=== PATIENT | female | born 1945 | race Two or more races ===

== ENCOUNTER 2019-08-06 14:46 | Inpatient (IN) | payer MEDICARE, MEDICAID ==
[~2019-08-06] VITALS: Ht 162.6 cm; Wt 79.5 kg
[~2019-08-06 14:46] MED LIST: AMLO5TAB15 PO; ASPI-394 PO; B-CO1CAP6 PO; CLOP75TA41 PO; GABA100C9 PO; INSUINJ49 SC; LOSA-69 PO; METO25TA5 PO; Novolog SC; PANT1INJ3 PO; PRAV20TA3 PO; RANI-226 PO; SEVE800T8 PO
[2019-08-06 15:24] LABS: Basophils # (auto) 0.1 10 ^3/uL (0-0.2); Basophils % (auto) 0.9 % (0.0-2.0); Eosinophils # (auto) 0.1 10 ^3/uL (0-0.8); Lymphocytes # (auto) 0.7 10 ^3/uL (0.4-5.4); Monocytes # (auto) 0.4 10 ^3/uL (0-1.3); Nucleated Red Blood Cells % 0.1 %; Red Cell Distribution Width 18.9 % (11.8-14.3)
[2019-08-06 15:25] LABS: Eosinophils % (auto) 1.6 % (0.0-7.0); Hematocrit 27.1 % (36.0-46.0); Hemoglobin 8.8 g/dL (12.2-16.2); Lymphocytes % (auto) 10.8 % (10.0-50.0); Mean Corpuscular Hgb Conc. 32.3 g/dL (32.0-36.0); Mean Corpuscular Volume 102.2 fL (80.0-100.0); Neutrophils # (auto) 5.1 10 ^3/uL (1.6-8.6); Neutrophils % (auto) 79.7 % (37.0-80.0); Platelet Count (auto) 181 10^3/uL (140-450); Red Blood Cells 2.65 10^6/uL (4.0-5.20); White Blood Cell 6.4 10^3/uL (4.4-10.8)
[2019-08-06 15:43] LABS: Albumin 3.1 g/dL (3.4-5.0); BUN/Creatinine Ratio 8.7; Calcium 7.7 mg/dL (8.5-10.1); Potassium 5.4 mmol/L (3.5-5.1)
[2019-08-06 15:47] LABS: Bilirubin, Total 0.7 mg/dL (0.2-1.0); Total Protein 6.8 g/dL (6.4-8.2)
[2019-08-06] MEDS ORDERED: DEXTROSE (50%) 50ML SYRG IV PRN (23:45)
[2019-08-06] MEDS ORDERED: NITROGLYCERIN 0.4 MG SL TAB SL PRN (23:45)
[2019-08-06] MEDS ORDERED: MORPHINE SULF INJ 2 MG/ML SYRINGE 1ML IV PRN ×2 (23:45)
[2019-08-07] MEDS: ACCU-CHEK COMFORT CURVE STRIP VI SCH ×5 (00:44→23:33)
[2019-08-07 02:07] LABS: INR 1.02 (0.9-1.15); Partial Thromboplastin Time 25.6 sec (23.64-32.05)
--- NOTE | 2019-08-07 04:10 | NUR ---
Telemetry admit from ER SARAHI OHARA admitted to Telemetry unit. Patient oriented to Kelsy Barker, primary RN, unit, room, bed, and unit policies regarding patient care and visiting hours. Patient now on continuous telemetry monitoring, tele box #[id number] and telemetry reading on arrival to unit is Sinus Bradycardia @58bpm. Patient placed on bedside oxygen, weighed by bed scale and encouraged to call if they need something. All questions and concerns addressed, patient verbalized understanding. Note: Patient Arabic speaking.
[2019-08-07 05:00] VITALS: BP 140/39
[2019-08-07] MEDS: InsuLIN REG 1unit/0.01ml Soln (100units/ml) SC SCH ×5 (06:37→23:32)
--- NOTE | 2019-08-07 07:15 | NUR ---
WOUND PHOTOS TAKEN AND FORMS PLACED IN WOUND CARE BOX.
--- NOTE | 2019-08-07 07:50 | NUR ---
OPENING SHIFT NOTE ASSUMED CARE OF PATIENT FROM CREDIT COLLECTIONS ANALYST RN TERESA. PATIENT IS AWAKE, ALERT, AND ORIENTED X4. PATIENT HAS NO S/S OF DISTRESS/SOB OR PAIN. INSTRUCTED PATIENT ON POC, PATIENT VERBALIZED UNDERSTANDING. BED IS IN LOWEST POSITION WITH SIDE RAILS RAISED X2, BED WHEELS LOCKED, AND CALL LIGHT IS WITHIN REACH. WILL CONTINUE TO MONITOR.
--- NOTE | 2019-08-07 08:00 | NUR ---
PATIENT HAS A RIGHT GROIN AND LEFT UPPER CHEST DIALYSIS CATHETER. BOTH ARE ASYMPTOMATIC.
[2019-08-07 08:30] VITALS: BP 129/49
[2019-08-07 10:53] LABS: Calcium 8.7 mg/dL (8.5-10.1); Potassium 4.9 mmol/L (3.5-5.1)
--- NOTE | 2019-08-07 11:00 | NUR ---
WOUND CARE NOTE: WOUND CONSULT WAS ORDERED FOR PATIENT. UPON DISCUSSION WITH BEDSIDE NURSE, PATIENT HAS NO OPEN/DRAINING WOUNDS. PATIENT HAS KARLA SCORE OF 16, AND CAN SELF TURN/REPOSITION SELF. WOUND CONSULT ORDER IS TO BE CANCELLED. NO WOUND CARE MONITORING NEEDED AT THIS TIME.
--- NOTE | 2019-08-07 11:50 | NUR ---
INFORMED MD LITTLE OF CRITICAL BUN. IS AWARE. NO NEW ORDERS GIVEN.
--- NOTE | 2019-08-07 12:00 | NUR ---
PER OK TO CONTINUE ALL HOME MEDICATIONS
[2019-08-07 12:30] VITALS: BP 133/54
[2019-08-07] MEDS ORDERED: AZITHROMYCIN 250 MG TAB PO ONE (13:45)
[2019-08-07] MEDS ORDERED: ENOXAPARIN SOD 100 MG/1 ML SYRINGE SC ONE (13:45)
[2019-08-07] MEDS ORDERED: cefTRIAXone 1GM/50ML D5W 50 ML IV ONE (14:00)
[2019-08-07 17:00] VITALS: BP 132/52
[2019-08-07] MEDS: SEVELAMER 800 MG TAB PO SCH (17:52)
[2019-08-07] MEDS: amLODIPine BESYLATE 5 MG TAB PO SCH (17:52)
--- NOTE | 2019-08-07 18:46 | NUR ---
CLOSING SHIFT NOTE PATIENT HAS NO S/S OF DISTRESS/SOB OR PAIN AT THIS TIME. WILL ENDORSE CARE TO FOREST LOGISTICS MANAGER RN.
--- NOTE | 2019-08-07 19:30 | NUR ---
Opening Shift Note Assumed care of patient, awake and alert, martiniquais speaking.looked for an linker up. No S/S of distress/SOB or pain. Instructed on POC and to call for assist PRN, will continue to monitor for changes Q1hr and PRN.
[2019-08-07 22:00] VITALS: BP 124/61
[2019-08-07] MEDS ORDERED: RANITIDINE HCL PO SCH (22:00)
[2019-08-07] MEDS: METOPROLOL TARTRATE 25 MG TAB PO SCH (22:00)
[2019-08-07] MEDS ORDERED: PATIENTS OWN MEDICATION (Sevelamer Carbonate (Renvela) 2 TAB) PO SCH (22:00)
[2019-08-07] MEDS: PRAVASTATIN SODIUM 20 MG TAB PO SCH (22:05)
[2019-08-07] MEDS: LOSARTAN POTASSIUM 50 MG TAB PO SCH (22:06)
[2019-08-07] MEDS: GABAPENTIN 100 MG CAP PO SCH (22:07)
[2019-08-08 05:00] VITALS: BP 125/44
--- NOTE | 2019-08-08 05:17 | NUR ---
Opening Shift Note Assumed care of patient, awake and alert, equatorial guinean speaking. No S/S of distress/SOB or pain. Instructed on POC and to call for assist PRN, will continue to monitor for changes Q1hr and PRN.
[2019-08-08] MEDS: InsuLIN REG 1unit/0.01ml Soln (100units/ml) SC SCH ×3 (06:00→17:22)
[2019-08-08] MEDS: ACCU-CHEK COMFORT CURVE STRIP VI SCH ×3 (06:33→17:21)
--- NOTE | 2019-08-08 07:00 | NUR ---
pt sleeping at this time. respirations even and unlabored. Endorsed to ANTONIO Matthews.
--- NOTE | 2019-08-08 07:18 | NUR ---
OPENING SHIFT NOTE ASSUMED CARE OF PATIENT FROM INSURANCE SPECIALIST RN TERESA. PATIENT IS AWAKE, ALERT, AND ORIENTED X4. PATIENT HAS NO S/S OF DISTRESS/SOB OR PAIN. INSTRUCTED PATIENT ON POC, PATIENT VERBALIZED UNDERSTANDING. BED IS IN LOWEST POSITION WITH SIDE RAILS RAISED X2, BED WHEELS LOCKED, AND CALL LIGHT IS WITHIN REACH. WILL CONTINUE TO MONITOR.
[2019-08-08] MEDS: cefTRIAXone 1GM/50ML D5W 50 ML IV SCH (07:52)
[2019-08-08] MEDS: SEVELAMER 800 MG TAB PO SCH ×3 (07:52→17:32)
[2019-08-08 08:00] VITALS: BP 116/49
[2019-08-08 08:10] VITALS: BP 116/49
[2019-08-08] MEDS: B-COMPLEX W/ C & FOLIC ACID(NEPHROVITE TAB) PO SCH (09:46)
[2019-08-08] MEDS: CLOPIDOGREL BISULFATE 75 MG TAB PO SCH (09:46)
[2019-08-08] MEDS: AZITHROMYCIN 250 MG TAB PO SCH (09:46)
[2019-08-08] MEDS: FAMOTIDINE 20 MG TAB PO SCH (09:46)
[2019-08-08] MEDS: PANTOPRAZOLE 40 MG/10 ML VIAL INJ IV SCH (09:47)
[2019-08-08] MEDS ORDERED: ENOXAPARIN SOD 100 MG/1 ML SYRINGE SC SCH (10:00)
[2019-08-08] MEDS ORDERED: [UNRECOGNIZED DRUG - OTHER] PO SCH (10:00)
[2019-08-08] MEDS ORDERED: FOLIC ACID PO SCH (10:00)
[2019-08-08] MEDS ORDERED: ASPirin-EC 81 mg tab PO SCH (10:00)
[2019-08-08] MEDS ORDERED: B COMPLEX PO SCH (10:00)
[2019-08-08 10:15] LABS: Basophils # (auto) 0.1 10 ^3/uL (0-0.2); Basophils % (auto) 0.9 % (0.0-2.0); Eosinophils # (auto) 0.2 10 ^3/uL (0-0.8); Eosinophils % (auto) 2.9 % (0.0-7.0); Hemoglobin 8.8 g/dL (12.2-16.2); Lymphocytes # (auto) 1.1 10 ^3/uL (0.4-5.4); Lymphocytes % (auto) 14.6 % (10.0-50.0); Mean Corpuscular Hemoglobin 32.4 pg (28.0-32.0); Mean Corpuscular Hgb Conc. 32.7 g/dL (32.0-36.0); Mean Corpuscular Volume 99.3 fL (80.0-100.0); Monocytes # (auto) 0.6 10 ^3/uL (0-1.3); Monocytes % (auto) 8.7 % (0.0-12.0); Neutrophils # (auto) 5.3 10 ^3/uL (1.6-8.6); Neutrophils % (auto) 72.9 % (37.0-80.0); Nucleated Red Blood Cells % 0.1 %; Platelet Count (auto) 158 10^3/uL (140-450); Red Blood Cells 2.72 10^6/uL (4.0-5.20); Red Cell Distribution Width 18.3 % (11.8-14.3); White Blood Cell 7.2 10^3/uL (4.4-10.8)
[2019-08-08 10:32] LABS: BUN/Creatinine Ratio 8.6; Calcium 8.6 mg/dL (8.5-10.1)
--- NOTE | 2019-08-08 11:00 | NUR ---
MD LITTLE AT BEDSIDE. UPDATED MD ON PATIENT'S STATUS INCLUDING CRITICAL BUN AND CREATININE, MD IS AWARE AND ORDERED ASPIRIN TO BE DISCONTINUED. WILL FOLLOW THROUGH WITH ORDERS.
--- NOTE | 2019-08-08 11:10 | NUR ---
INFORMED MD LITTLE PATIENT WAS CLEARED FOR DISCHARGE BY NEPHROLOGY AND THEY WANT PATIENT TO CONTINUE DIALYSIS OUTPATIENT ON THURSDAY. PER MD HE WILL ORDER COUMADIN FOR THE PATIENT.
[2019-08-08 13:15] VITALS: BP 118/38
[2019-08-08 14:19] LABS: INR 1.06 (0.9-1.15)
--- NOTE | 2019-08-08 14:48 | NUR ---
Nutrition Assessment Notes please see attached link for complete assessment Est Energy needs BW 72 [id number] kcals (25-30kcal/kgBW), Est Protein needs: 86-93 gms/day (1.2-1.3 gm/kgBW (HD). Will continue to monitor and reassess prn. Addendum: 08/08/19 at [address] Amended: Links added.
--- NOTE | 2019-08-08 16:00 | NUR ---
SPOKE WITH DR. ANTUNEZ. INFORMED MD OF PATIENT'S BUN AND CREATININE LEVELS, RIGHT GROIN AND LEFT UPPER CHEST DIALYSIS CATHETERS. PER MD THE CLOT IN THE ARM NEEDS TO BE THERE BECAUSE THEY LIGATED THE FISTULA. MD DOES NOT WANT PATIENT ON COUMADIN AND WANTS THE RIGHT GROIN DIALYSIS TAKEN OUT. WILL INFORM MD LITTLE.
--- NOTE | 2019-08-08 16:12 | NUR ---
SPOKE WITH DR. LITTLE AND INFORMED MD LITTLE THAT DR. ANTUNEZ DOES NOT WANT THE PATIENT TO BE ON ANTICOAGS AND CLEARED PATIENT FOR DISCHARGE. PER MD LITTLE VERIFY WHICH MEDICATIONS TO DISCONTINUE AND IF MD ANTUNEZ WANTS PATIENT DISCHARGED TO PUT ORDER UNDER DR. ANTUNEZ WELL SURGICAL CONSULT. IF NOT MD LITTLE WILL DISCHARGE THE PATIENT IN THE MORNING. CALLED MD ANTUNEZ AND VERIFIED MEDICATIONS TO DISCONTINUE. MD BELLE ORDERED COUMADIN AND PLAVIX TO BE DISCONTINUED AND ORDERED A SURGICAL CONSULT TO REMOVE RIGHT GROIN DIALYSIS CATHETER. PER DR. ANTUNEZ HE WILL PUT IN ORDERS FOR PATIENT TO BE DIALYSED TOMORROW, PATIENT CAN BE DISCHARGED AFTER DIALYSIS. Addendum: 08/08/19 at 1649 by Cassie Puri RN RN MD ANTUNEZ ORDERED LOVENOX AND COUMADIN TO BE DISCONTINUED. IS OKAY WITH PLAVIX TO BE GIVEN
[2019-08-08] MEDS ORDERED: WARFARIN SODIUM 2.5 MG TAB PO ONE (17:00)
[2019-08-08 17:10] VITALS: BP 127/54
[2019-08-08] MEDS: amLODIPine BESYLATE 5 MG TAB PO SCH (17:34)
--- NOTE | 2019-08-08 19:05 | NUR ---
CLOSING SHIFT NOTE ENDORSED CARE TO TAXONOMY TEACHER ANTONIO REYES. PATIENT HAS NO S/S OF DISTRESS/SOB OR PAIN AT THIS TIME.
--- NOTE | 2019-08-08 19:35 | NUR ---
Opening Shift Note Assumed care of patient, awake and alert. No S/S of distress/SOB or pain. Instructed on POC and to call for assist PRN, patient verbalized understanding. Safety precaution in place, bed alarm on, call light within reach, will continue to monitor for changes Q1hr and PRN.
[2019-08-08] MEDS: LOSARTAN POTASSIUM 50 MG TAB PO SCH (21:39)
[2019-08-08] MEDS: PRAVASTATIN SODIUM 20 MG TAB PO SCH (21:39)
[2019-08-08] MEDS: GABAPENTIN 100 MG CAP PO SCH (21:39)
[2019-08-08] MEDS: METOPROLOL TARTRATE 25 MG TAB PO SCH (21:39)
[2019-08-08 23:31] VITALS: BP 112/62
[2019-08-09] MEDS: ACCU-CHEK COMFORT CURVE STRIP VI SCH ×4 (00:08→17:53)
[2019-08-09] MEDS: HYDROcodone-ACET 5/325MG TAB PO PRN (04:33)
[2019-08-09 05:25] VITALS: BP 106/73
[2019-08-09] MEDS: InsuLIN REG 1unit/0.01ml Soln (100units/ml) SC SCH ×4 (06:00→17:52)
[2019-08-09 07:09] LABS: Basophils # (auto) 0 10 ^3/uL (0-0.2); Basophils % (auto) 0.6 % (0.0-2.0); Eosinophils # (auto) 0.2 10 ^3/uL (0-0.8); Eosinophils % (auto) 3.6 % (0.0-7.0); Hematocrit 26.6 % (36.0-46.0); Hemoglobin 8.8 g/dL (12.2-16.2); Lymphocytes % (auto) 16.1 % (10.0-50.0); Mean Corpuscular Hemoglobin 33.2 pg (28.0-32.0); Mean Corpuscular Hgb Conc. 33.3 g/dL (32.0-36.0); Mean Corpuscular Volume 99.9 fL (80.0-100.0); Monocytes # (auto) 0.5 10 ^3/uL (0-1.3); Monocytes % (auto) 8.9 % (0.0-12.0); Neutrophils # (auto) 4.3 10 ^3/uL (1.6-8.6); Neutrophils % (auto) 70.8 % (37.0-80.0); Nucleated Red Blood Cells % 0.1 %; Platelet Count (auto) 169 10^3/uL (140-450); Red Blood Cells 2.66 10^6/uL (4.0-5.20); Red Cell Distribution Width 17.6 % (11.8-14.3); White Blood Cell 6.1 10^3/uL (4.4-10.8)
[2019-08-09 07:30] LABS: INR 1.01 (0.9-1.15)
[2019-08-09 07:32] LABS: Potassium 5.2 mmol/L (3.5-5.1)
[2019-08-09 07:37] LABS: BUN/Creatinine Ratio 9.2; Calcium 8.5 mg/dL (8.5-10.1)
--- NOTE | 2019-08-09 08:00 | NUR ---
Received pt resting in bed, call light with in reach, pt reports pain on her lower back due to not been able to have a normal BM, pt had a small BM 08/08/19,
[2019-08-09] MEDS: SEVELAMER 800 MG TAB PO SCH ×3 (08:15→17:23)
[2019-08-09 09:00] VITALS: BP 97/49
[2019-08-09] MEDS: AZITHROMYCIN 250 MG TAB PO SCH ×2 (09:31→10:00)
[2019-08-09] MEDS: DOCUSATE SOD 100 MG CAP PO PRN (09:32)
[2019-08-09] MEDS: B-COMPLEX W/ C & FOLIC ACID(NEPHROVITE TAB) PO SCH ×2 (09:32→10:00)
[2019-08-09] MEDS: FAMOTIDINE 20 MG TAB PO SCH ×2 (09:32→10:00)
[2019-08-09] MEDS: CLOPIDOGREL BISULFATE 75 MG TAB PO SCH ×2 (09:32→10:00)
[2019-08-09] MEDS: cefTRIAXone 1GM/50ML D5W 50 ML IV SCH (09:33)
[2019-08-09] MEDS: PANTOPRAZOLE 40 MG/10 ML VIAL INJ IV SCH ×2 (09:33→11:04)
[2019-08-09] MEDS: ONDANSETRON HCL 4 MG/2 ML VIAL IV PRN ×3 (09:33→20:18)
[2019-08-09] MEDS ORDERED: ENOXAPARIN SOD 80 MG/0.8ML SYRINGE SC SCH (10:00)
[2019-08-09] MEDS ORDERED: LACTULOSE 20Gm/30ML SOLN PO ONE (10:00)
--- NOTE | 2019-08-09 10:20 | NUR ---
Dr. Lacy at bed side to see pt, doctor informed regarding the critical lab values of BUN 112 and creatinine 12.20, pt vomiting her morning po medications, pt requesting a laxative, pt's last normal BM 3 days ago, and pt's HR to be on 40s, as per doctor call Dr. Juárez and inform of pt's HR to be in the 40s.
--- NOTE | 2019-08-09 10:20 | NUR ---
As per Dr. Lacy the discharge will be until Dr. Fisher / hi surgeon removes the right femoral meenu cath.
--- NOTE | 2019-08-09 11:00 | NUR ---
VTE DISCHARGE PATIENT NOT BEING DISCHARGED ON LOVENOX OF COUMADIN. CONTRAINDICATION DOCUMENTED. Addendum: 08/09/19 at 1112 by Cira Lakhani RN Amended: Links added.
--- NOTE | 2019-08-09 11:50 | NUR ---
Called and left a message to Dr. Juárez / Nephtavares to inform that pt's BUN is 112, createnine is 12.20, and that pt's HR has been sustaining at 40s to 50s, HD nurse at unit and also paged Dr. Juárez with the same information and to obtain HD orders for today.
[2019-08-09] MEDS ORDERED: SODIUM CHL 0.9% 1000 ML BAG XX ONE ×2 (12:00→13:15)
--- NOTE | 2019-08-09 12:00 | NUR ---
Dr. Juárez / daija returned call to hemodialysis nurse and gave her orders for hemodialysis, for the HR Dr. Juárez ask to inform the hospitalist. Dr. Lacy was already informed.
[2019-08-09 12:53] VITALS: BP 129/59
[2019-08-09] MEDS ORDERED: ALBUMIN 25% 100 ML IV ONE ×2 (14:00)
--- NOTE | 2019-08-09 14:30 | NUR ---
Pt on hold per RN. Addendum: 08/09/19 at 1443 by Vladislav Scott RN ACUTE CARE Amended: Links added.
--- NOTE | 2019-08-09 14:44 | NUR ---
ASSESSMENT INTERNAL AUDIT MANAGER SPOKE WITH PT'S GRANDSON TESSA PER INITIAL ASSESSMENT. PT IS A 73 YR OLD [place] SPEAKING FEMALE ADMITTED FOR ESRD, ACUTE CHF. SHE HAS A HX OF DM, ON DIALYSIS MWF WITH [facility]. PT HAS A WHEELCHAIR AND FWW AT HOME. SHE WAS PREVIOUSLY WITH [employer], NOT CURRENTLY ON SERVICES. PT'S PCP IS DR. MIXON. PT RESIDES WITH FAMILY (DAUGHTER NATO [phone] AND GRANDSON TESSA). DAUGHTER IS EMERGENCY DECISION MAKER, NO AHCD. FAMILY DECLINED AHCD/POA INFO AT THIS TIME. PT TO DC HOME WITH FAMILY 08/08, POSSIBLY 08/09, SHE IS PENDING REMOVAL OF RICARDO CATH. NO OTHER SS NEEDS IDENTIFIED, SS TO REMAIN AVAILABLE NEEDED. Addendum: 08/09/19 at 1448 by DENIZ MULLINS SS Amended: Links added.
--- NOTE | 2019-08-09 15:20 | NUR ---
Hemodialysis HD done, report received by HD nurse, pt's last BP 85/48, HR 48, pt is vomiting at this time, will medicate pt for nausea,
--- NOTE | 2019-08-09 15:30 | NUR ---
Paged Dr. Bell to inform that pt is having low BP, low HR, BP 85/48, HR 48, pt has been vomiting, pt reporting upper abdominal pain and back pain, tele monitor unit reported pt's HR dropping to 28, pt reported to feel dizzy and nauseous. Awaiting call back.
[2019-08-09 16:31] VITALS: BP 120/47
--- NOTE | 2019-08-09 16:50 | NUR ---
Dr. Fisher/surgeon at bed side to see pt, doctor discussed the plan of care with pt, pt reported to doctor having vomiting, upper abdominal pain, and back pain, doctor ordered an abdominal ultrasound, medical clearance, NPO, obtain consent for rt groin HD cath removal. Will inform Dr. Lacy.
--- NOTE | 2019-08-09 17:00 | NUR ---
Called and spoke to Dr. Lacy regarding pt having vomiting, upper abdominal pain and back pain, pt's heart rate sustaining on the 40s and dropping down to 38 and 28, pt reporting dizziness, EKG done, EKG results sinus rhythm at 70, pt having low BP during HD 85/48, received an order from Dr. Juárez/nephro for a one time albumin given by HD nurse, pt's last BP 120/47, HR 48, that Dr. Fisher/surgeon seen, orders received for cardiology consult, and orders to hold d/c.
[2019-08-09] MEDS: amLODIPine BESYLATE 5 MG TAB PO SCH (17:51)
--- NOTE | 2019-08-09 19:35 | NUR ---
Opening Shift Note Patient rounded with day nurse. Assumed care of patient, awake, appears fatigued, oriented. Instructed on POC and to call for assist PRN, will continue to monitor for changes Q1hr and PRN.
--- NOTE | 2019-08-09 20:15 | NUR ---
Patient complains of nausea. Zofran IV given per prn for nausea. Will continue to closely monitor.
[2019-08-09] MEDS ORDERED: EPOETIN ALFA 10,000 UNIT/1 ML VIAL SC ONE ×2 (21:00)
[2019-08-09 22:00] VITALS: BP 136/44
[2019-08-09] MEDS: GABAPENTIN 100 MG CAP PO SCH (22:00)
[2019-08-09] MEDS: LOSARTAN POTASSIUM 50 MG TAB PO SCH (22:00)
[2019-08-09] MEDS: METOPROLOL TARTRATE 25 MG TAB PO SCH (22:00)
[2019-08-09] MEDS: PRAVASTATIN SODIUM 20 MG TAB PO SCH (22:00)
--- NOTE | 2019-08-10 | NUR ---
Patient fells tired. Denies nausea at this time, no complains of pain. Care continued.
[2019-08-10] MEDS: ACCU-CHEK COMFORT CURVE STRIP VI SCH ×4 (00:44→18:45)
[2019-08-10 05:00] VITALS: BP 112/70
[2019-08-10] MEDS: InsuLIN REG 1unit/0.01ml Soln (100units/ml) SC SCH ×4 (06:00→18:00)
[2019-08-10] MEDS: ACETAMINOPHEN 325 MG TAB PO PRN (06:50)
--- NOTE | 2019-08-10 06:50 | NUR ---
Patient's temperature checked, result is 101 degrees. Tylenol 650 mg PO given as ordered by MD. Cooling measured initiated. Care continued.
--- NOTE | 2019-08-10 07:45 | NUR ---
Opening Note Received report from shift leader RN. Patient resting in bed, no signs or symptoms of distress noted at this time. Patient is on 2L NC, respirations even and unlabored. Bed in low and locked position, call light within reach. Will continue to monitor Q1 hour and PRN.
--- NOTE | 2019-08-10 07:50 | NUR ---
Temperature rechecked, went down to 100.4 degrees. Cooling measures continued. Report given to munir ALVAREZ.
[2019-08-10] MEDS: SEVELAMER 800 MG TAB PO SCH ×3 (08:00→18:00)
[2019-08-10 08:52] VITALS: BP 148/92
[2019-08-10] MEDS: cefTRIAXone 1GM/50ML D5W 50 ML IV SCH (09:06)
[2019-08-10] MEDS: PANTOPRAZOLE 40 MG/10 ML VIAL INJ IV SCH (09:06)
[2019-08-10] MEDS: B-COMPLEX W/ C & FOLIC ACID(NEPHROVITE TAB) PO SCH (09:07)
[2019-08-10] MEDS: CLOPIDOGREL BISULFATE 75 MG TAB PO SCH (09:07)
[2019-08-10] MEDS: FAMOTIDINE 20 MG TAB PO SCH (09:11)
[2019-08-10] MEDS: AZITHROMYCIN 250 MG TAB PO SCH (09:12)
--- NOTE | 2019-08-10 11:15 | NUR ---
Dr. Jordyn Hicks at bedside Discussing plan of care with this RN. Will continue to monitor Q1 hour and PRN.
[2019-08-10 12:47] VITALS: BP 105/70
[2019-08-10] MEDS ORDERED: LIDOCAINE 1% HCL (LOCAL ANESTH.) INJ 20ML MDV ONE (13:10)
[2019-08-10] MEDS ORDERED: BUPIVACAINE 0.25% INJ 50ML VIAL ONE (13:10)
--- NOTE | 2019-08-10 13:10 | NUR ---
Patient taken down to OR
[2019-08-10] MEDS ORDERED: fentaNYL CITRATE 100 MCG/2 ML VL ONE (13:47)
[2019-08-10] MEDS ORDERED: ONDANSETRON HCL 4 MG/2 ML VIAL IV PRN (14:15)
[2019-08-10] MEDS ORDERED: hydrALAZINE HCL 20 MG/ML VL IV PRN (14:15)
[2019-08-10] MEDS ORDERED: ePHEDrine SULFATE 50 MG/ML AMP IV PRN (14:15)
[2019-08-10] MEDS ORDERED: fentaNYL CITRATE 100 MCG/2 ML VL IV PRN (14:15)
--- NOTE | 2019-08-10 14:52 | NUR ---
Patient back to room Patient is s/p dialysis catheter removal from right groin. Patient is resting with eyes closed, easy to wake by calling name. Vital signs within normal limits. Dressing to right groin is clean dry and intact. Bed alarm on for safety. Bed in low and locked position, call light within reach. Will continue to monitor Q1 hour and PRN.
[2019-08-10 15:47] LABS: Basophils # (auto) 0 10 ^3/uL (0-0.2); Basophils % (auto) 0.2 % (0.0-2.0); Eosinophils # (auto) 0 10 ^3/uL (0-0.8); Hematocrit 30.8 % (36.0-46.0); Lymphocytes # (auto) 0.3 10 ^3/uL (0.4-5.4); Lymphocytes % (auto) 1.7 % (10.0-50.0); Mean Corpuscular Hemoglobin 32.5 pg (28.0-32.0); Mean Corpuscular Hgb Conc. 32.3 g/dL (32.0-36.0); Mean Corpuscular Volume 100.7 fL (80.0-100.0); Monocytes # (auto) 1.3 10 ^3/uL (0-1.3); Neutrophils # (auto) 15.2 10 ^3/uL (1.6-8.6); Neutrophils % (auto) 90.1 % (37.0-80.0); Nucleated Red Blood Cells % 0.1 %; Platelet Count (auto) 191 10^3/uL (140-450); Red Blood Cells 3.06 10^6/uL (4.0-5.20); Red Cell Distribution Width 18.1 % (11.8-14.3); White Blood Cell 16.9 10^3/uL (4.4-10.8)
[2019-08-10 15:51] LABS: INR 1.13 (0.9-1.15)
[2019-08-10 15:54] LABS: BUN/Creatinine Ratio 7.7; Calcium 8.6 mg/dL (8.5-10.1)
[2019-08-10 17:20] VITALS: BP 136/52
[2019-08-10] MEDS: amLODIPine BESYLATE 5 MG TAB PO SCH (17:22)
--- NOTE | 2019-08-10 19:31 | NUR ---
Closing Note Report given to overnight caregiver RN. No signs or symptoms of distress noted at this time.
--- NOTE | 2019-08-10 19:50 | NUR ---
Opening Shift Note Assumed care of patient, awake, AAOx4. On 2L oxygen via nasal cannula. Patient on bedrest. No S/S of distress/SOB or pain. Bed in lowest locked position, side rails up x2, call light within reach. Instructed on POC and to call for assist PRN, will continue to monitor for changes Q1hr and PRN.
[2019-08-10 22:00] VITALS: BP 155/47
[2019-08-10] MEDS: GABAPENTIN 100 MG CAP PO SCH (22:00)
[2019-08-10] MEDS: PRAVASTATIN SODIUM 20 MG TAB PO SCH (22:00)
[2019-08-10] MEDS: METOPROLOL TARTRATE 25 MG TAB PO SCH (22:00)
[2019-08-10] MEDS: LOSARTAN POTASSIUM 50 MG TAB PO SCH (22:00)
[2019-08-11 05:00] VITALS: BP 121/45
[2019-08-11] MEDS: InsuLIN REG 1unit/0.01ml Soln (100units/ml) SC SCH ×4 (06:00→17:43)
[2019-08-11] MEDS: ACCU-CHEK COMFORT CURVE STRIP VI SCH ×4 (06:00→17:43)
--- NOTE | 2019-08-11 07:45 | NUR ---
Opening Note Received report from second shift supervisor RN. Patient resting in bed, no signs or symptoms of distress noted at this time. Patient is on 3L NC, respirations even and unlabored. Bed in low and locked position, call light within reach. Will continue to monitor Q1 hour and PRN.
[2019-08-11] MEDS: SEVELAMER 800 MG TAB PO SCH ×3 (08:00→17:44)
--- NOTE | 2019-08-11 08:45 | NUR ---
Unsuccessful IV attempt Patient has no IV access at this time, this RN and charge nurse attempted to obtain IV access. Will place midline consult. Will continue to monitor Q1 hour and PRN.
[2019-08-11] MEDS: cefTRIAXone 1GM/50ML D5W 50 ML IV SCH ×2 (09:00→16:09)
[2019-08-11 09:03] VITALS: BP 127/57
[2019-08-11] MEDS: CLOPIDOGREL BISULFATE 75 MG TAB PO SCH (10:00)
[2019-08-11] MEDS: B-COMPLEX W/ C & FOLIC ACID(NEPHROVITE TAB) PO SCH (10:00)
[2019-08-11] MEDS: FAMOTIDINE 20 MG TAB PO SCH (10:00)
[2019-08-11] MEDS: PANTOPRAZOLE 40 MG/10 ML VIAL INJ IV SCH (10:00)
[2019-08-11] MEDS: AZITHROMYCIN 250 MG TAB PO SCH (10:00)
--- NOTE | 2019-08-11 10:00 | NUR ---
Dr. Farooq at bedside Discussing plan of care with patient and this RN. New orders received. Will continue to monitor Q 1hour and PRN.
[2019-08-11 11:10] LABS: INR 1.21 (0.9-1.15)
[2019-08-11 12:32] VITALS: BP 117/50
--- NOTE | 2019-08-11 14:49 | NUR ---
Nutrition Followup Notes Wt: 80.8 kg Pt was sleeping with no family by bedside. per records pt with leukocytosis. pt is currently on renal std diet with inadequte PO of < 50% x 2 days as pt is refusing to eat per RN. Est Energy needs BW 72 [id number] kcals (25-30kcal/kgBW), Est Protein needs: 86-93 gms/day (1.2-1.3 gm/kgBW (HD). Will continue to monitor and reassess prn. LABS: BUN 68 H, CREAT 8.7 H, GLU 173 H, ALB 3.1 L GI: Pt had 1 BM 08/08 per RN doc BS: 15 mod risk, incision at site of sx per RN doc. Please refer to wound assessment report for full details. PES: Altered nutrition related lab values r/t current chronic medical condition aeb elev RFT TG hyperglycemia Comments Will continue to closely monitor pertinent labs, PO intake and skin status prn. Will followup in 3-5 days 1) refer to CDE oN DC. 2) consider nephrovite daily and Vit C bid. 3) continue current plan fo care
--- NOTE | 2019-08-11 15:50 | NUR ---
IV Insertion IV access obtained, via clean sterile technique by inserting 20 gauge catheter to the right forearm. IV secured properly. No trauma to site. Patient tolerated procedure well. Will continue to monitor Q1 hour and PRN.
[2019-08-11 16:48] VITALS: BP 115/62
[2019-08-11] MEDS: amLODIPine BESYLATE 5 MG TAB PO SCH (17:44)
--- NOTE | 2019-08-11 19:16 | NUR ---
Closing Note Report given to night clerk auditor RN. No signs or symptoms of distress noted at this time.
--- NOTE | 2019-08-11 19:40 | NUR ---
Opening Shift Note Assumed care of patient, awake and A/O x3, reoriented to time. No S/S of distress/SOB or pain. Bed in lowest locked position, both side rails lifted, safety precautions in place, call light within reach. Instructed on POC and to call for assist PRN, will continue to monitor for changes Q1hr and PRN. Signed: 08/12/19 at 0416 by JAVI VAUGHN <Co-Signature Required> Co-Signed: 08/12/19 at 0416 by Ivonne Brooks RN RN
[2019-08-11 22:00] VITALS: BP 116/47
[2019-08-11] MEDS: LOSARTAN POTASSIUM 50 MG TAB PO SCH (22:00)
[2019-08-11] MEDS: METOPROLOL TARTRATE 25 MG TAB PO SCH (22:00)
[2019-08-11] MEDS: PRAVASTATIN SODIUM 20 MG TAB PO SCH (22:34)
[2019-08-11] MEDS: HYDROcodone-ACET 5/325MG TAB PO PRN (22:34)
[2019-08-11] MEDS: GABAPENTIN 100 MG CAP PO SCH (22:34)
[2019-08-12 05:00] VITALS: BP 112/44
[2019-08-12] MEDS: InsuLIN REG 1unit/0.01ml Soln (100units/ml) SC SCH ×4 (06:00→18:14)
[2019-08-12] MEDS: ACCU-CHEK COMFORT CURVE STRIP VI SCH ×4 (06:19→18:14)
--- NOTE | 2019-08-12 07:30 | NUR ---
Opening Shift Note Assumed care of patient, patient appear very drowsy but responsive to name at this time. No S/S of distress/SOB or pain at this time. Instructed on POC and to call for assist PRN, will continue to monitor for changes Q1hr and PRN. Fall precautions in place per safety protocol.
[2019-08-12] MEDS: SEVELAMER 800 MG TAB PO SCH ×3 (08:21→18:13)
[2019-08-12 09:00] VITALS: BP 109/42
[2019-08-12] MEDS: cefTRIAXone 1GM/50ML D5W 50 ML IV SCH (09:38)
[2019-08-12] MEDS: FAMOTIDINE 20 MG TAB PO SCH (09:38)
[2019-08-12] MEDS: PANTOPRAZOLE 40 MG/10 ML VIAL INJ IV SCH (09:38)
[2019-08-12] MEDS: B-COMPLEX W/ C & FOLIC ACID(NEPHROVITE TAB) PO SCH (09:38)
[2019-08-12] MEDS: CLOPIDOGREL BISULFATE 75 MG TAB PO SCH (09:39)
[2019-08-12] MEDS: AZITHROMYCIN 250 MG TAB PO SCH (09:39)
[2019-08-12 10:38] LABS: INR 1.21 (0.9-1.15)
--- NOTE | 2019-08-12 12:00 | NUR ---
Sinus Tach Patient is ST with a HR in the high 140's and sustaining. Patient states, she feels dizzy. BP at this time is 94/49. Spoke to MD Lacy and updated him on patient status. Per MD Lacy, he will reconsult with MD Farooq for re-evaluation on patient. Per MD Lacy, patient experienced episode like this before and was placed on a beta brooklynn but then patient's HR became vega. At this time, Beta Brooklynn was stopped. Per MD Farooq notes, patient will be seen as outpatient. No new orders given at this time. Will cont to monitor patient.
--- NOTE | 2019-08-12 12:00 | NUR ---
MEDS HELD Renagel and Regular insulin 2 units held because patient refusing to eat. Patient educated on importance of medications and diet. Patient still refusing to eat. Will cont to monitor patient.
--- NOTE | 2019-08-12 12:40 | NUR ---
Hospitalist MD Lacy at bedside, aware of patient status. Per MD Lacy, he will speak to the patient's family for update on patient status and the possibility of placing patient on Hospice care. Per MD Lacy, he will place D/C order today, social service consult, and Physical therapy to ambulate the patient. Will carry out new orders and cont to monitor patient.
[2019-08-12 13:36] VITALS: BP 96/41
[2019-08-12] MEDS: amLODIPine BESYLATE 5 MG TAB PO SCH (18:00)
--- NOTE | 2019-08-12 19:26 | NUR ---
ENDORSED REPORT TO NIGHT RN, PATIENT RESTING IN BED, NO DISTRESS, SOB, OR PAIN NOTED AT THIS TIME.
--- NOTE | 2019-08-12 19:32 | NUR ---
Opening Shift Note Received report and assumed care of patient. Patient is awake and alert. No signs or symptoms of distress noted. Instructed patient on plan of care and to call for assistance as needed. Will continue to monitor.
[2019-08-12 22:00] VITALS: BP 137/53
[2019-08-12] MEDS: METOPROLOL TARTRATE 25 MG TAB PO SCH (22:00)
[2019-08-12] MEDS: GABAPENTIN 100 MG CAP PO SCH (22:56)
[2019-08-12] MEDS: PRAVASTATIN SODIUM 20 MG TAB PO SCH (22:57)
--- NOTE | 2019-08-12 23:02 | NUR ---
Medication Held Held Metoprolol 25mg. Due to patient's fluctuation in blood pressure and heart rate, administered Losartan per MD order and held metoprolol. Will continue to monitor.
[2019-08-12] MEDS: LOSARTAN POTASSIUM 50 MG TAB PO SCH (23:03)
--- NOTE | 2019-08-12 23:27 | NUR ---
Family Call Spoke with patient's daughter in law, Randee after password verification. Provided with updates. Will continue to monitor.
[2019-08-13 00:02] VITALS: BP 122/54
[2019-08-13] MEDS: ACCU-CHEK COMFORT CURVE STRIP VI SCH ×4 (00:02→17:40)
[2019-08-13] MEDS: DOCUSATE SOD 100 MG CAP PO PRN (00:17)
[2019-08-13 05:00] VITALS: BP 123/58
[2019-08-13] MEDS: InsuLIN REG 1unit/0.01ml Soln (100units/ml) SC SCH ×4 (06:00→17:44)
[2019-08-13 06:32] LABS: Basophils # (auto) 0 10 ^3/uL (0-0.2); Basophils % (auto) 0.1 % (0.0-2.0); Eosinophils # (auto) 0 10 ^3/uL (0-0.8); Eosinophils % (auto) 0.2 % (0.0-7.0); Hematocrit 27.7 % (36.0-46.0); Hemoglobin 8.9 g/dL (12.2-16.2); Lymphocytes # (auto) 0.7 10 ^3/uL (0.4-5.4); Lymphocytes % (auto) 3.9 % (10.0-50.0); Mean Corpuscular Hemoglobin 32.2 pg (28.0-32.0); Mean Corpuscular Volume 100.4 fL (80.0-100.0); Monocytes # (auto) 1.3 10 ^3/uL (0-1.3); Monocytes % (auto) 6.9 % (0.0-12.0); Neutrophils # (auto) 16.4 10 ^3/uL (1.6-8.6); Neutrophils % (auto) 88.9 % (37.0-80.0); Platelet Count (auto) 218 10^3/uL (140-450); Red Blood Cells 2.76 10^6/uL (4.0-5.20); Red Cell Distribution Width 17.7 % (11.8-14.3); White Blood Cell 18.4 10^3/uL (4.4-10.8)
[2019-08-13 06:52] LABS: Calcium 9.2 mg/dL (8.5-10.1); Potassium 5.5 mmol/L (3.5-5.1)
[2019-08-13] MEDS ORDERED: SODIUM CHL 0.9% 1000 ML BAG XX ONE (07:00)
[2019-08-13] MEDS: ONDANSETRON HCL 4 MG/2 ML VIAL IV PRN (07:19)
[2019-08-13] MEDS: SEVELAMER 800 MG TAB PO SCH ×3 (08:00→17:37)
--- NOTE | 2019-08-13 08:00 | NUR ---
OPENING SHIFT NOTE ASSUMED CARE OF PATIENT AWAKE AND ALERT. NO S/S OF DISTRESS NOTED. PATIENT IS CURRENTLY RECEIVING DIALYSIS. PATIENT UPDATED ON POC FOR THE DAY AND ALL QUESTIONS ANSWERED. BED IS IN LOWEST, LOCKED POSITION WITH SIDE RAILS UP X2 AND CALL LIGHT WITHIN REACH. WILL CONTINUE TO MONITOR Q1H AND PRN.
[2019-08-13 09:00] VITALS: BP 114/35
[2019-08-13] MEDS: cefTRIAXone 1GM/50ML D5W 50 ML IV SCH (09:00)
[2019-08-13] MEDS: CLOPIDOGREL BISULFATE 75 MG TAB PO SCH (10:00)
[2019-08-13] MEDS: B-COMPLEX W/ C & FOLIC ACID(NEPHROVITE TAB) PO SCH (10:00)
[2019-08-13] MEDS: PANTOPRAZOLE 40 MG/10 ML VIAL INJ IV SCH (10:00)
[2019-08-13] MEDS: FAMOTIDINE 20 MG TAB PO SCH (10:00)
[2019-08-13] MEDS: AZITHROMYCIN 250 MG TAB PO SCH (10:00)
--- NOTE | 2019-08-13 10:39 | NUR ---
DIALYSIS START TIME: 629 END TIME: 840 1L REMOVED. PATIENT BLOOD PRESSURE 114/45
[2019-08-13 13:00] VITALS: BP 110/56
[2019-08-13 17:00] VITALS: BP 113/45
[2019-08-13] MEDS: amLODIPine BESYLATE 5 MG TAB PO SCH (17:37)
--- NOTE | 2019-08-13 19:30 | NUR ---
Opening Shift Note Assumed care of patient, awake and alert. No S/S of distress/SOB or pain. Bed in lowest locked position, side rails up x2, call light within reach, bed alarm on. Instructed on POC and to call for assist PRN, will continue to monitor for changes Q1hr and PRN.
[2019-08-13 22:00] VITALS: BP 91/47
[2019-08-13] MEDS: METOPROLOL TARTRATE 25 MG TAB PO SCH (22:00)
[2019-08-13] MEDS: LOSARTAN POTASSIUM 50 MG TAB PO SCH (22:00)
[2019-08-13] MEDS: GABAPENTIN 100 MG CAP PO SCH (22:38)
[2019-08-13] MEDS: ACETAMINOPHEN 325 MG TAB PO PRN (22:39)
[2019-08-13] MEDS: PRAVASTATIN SODIUM 20 MG TAB PO SCH (22:39)
[2019-08-13] MEDS: LACTULOSE 20Gm/30ML SOLN PO PRN (22:40)
[2019-08-14] MEDS: ACCU-CHEK COMFORT CURVE STRIP VI SCH ×5 (00:15→23:01)
[2019-08-14] MEDS: InsuLIN REG 1unit/0.01ml Soln (100units/ml) SC SCH ×5 (00:16→23:18)
[2019-08-14 06:00] VITALS: BP 113/48
[2019-08-14 06:32] LABS: Basophils # (auto) 0 10 ^3/uL (0-0.2); Eosinophils # (auto) 0 10 ^3/uL (0-0.8); Lymphocytes # (auto) 0.8 10 ^3/uL (0.4-5.4)
[2019-08-14 06:35] LABS: Basophils % (auto) 0.1 % (0.0-2.0); Eosinophils % (auto) 0.3 % (0.0-7.0); Lymphocytes % (auto) 5.4 % (10.0-50.0); Mean Corpuscular Hemoglobin 32.3 pg (28.0-32.0); Mean Corpuscular Hgb Conc. 31.9 g/dL (32.0-36.0); Mean Corpuscular Volume 101.1 fL (80.0-100.0); Monocytes # (auto) 1.3 10 ^3/uL (0-1.3); Monocytes % (auto) 8.8 % (0.0-12.0); Neutrophils # (auto) 12.2 10 ^3/uL (1.6-8.6); Neutrophils % (auto) 85.4 % (37.0-80.0); Nucleated Red Blood Cells % 0.1 %; Platelet Count (auto) 200 10^3/uL (140-450); Red Blood Cells 2.47 10^6/uL (4.0-5.20); Red Cell Distribution Width 17.4 % (11.8-14.3); White Blood Cell 14.2 10^3/uL (4.4-10.8)
--- NOTE | 2019-08-14 06:42 | NUR ---
Closing Note Patient lying in bed, eyes closed, respirations even and unlabored, appears asleep. Patient awakens to name and touch. No s/s of distress. Call light within reach. Will endorse care to dayshift RN.
[2019-08-14 06:52] LABS: BUN/Creatinine Ratio 9.3; Calcium 8.2 mg/dL (8.5-10.1); Potassium 4.7 mmol/L (3.5-5.1)
[2019-08-14] MEDS: SEVELAMER 800 MG TAB PO SCH ×3 (08:00→18:08)
--- NOTE | 2019-08-14 08:04 | NUR ---
OPENING SHIFT NOTE Assumed care of patient. Awake, alert and oriented x4. No S/S of distress or SOB. Instructed on POC and to call for assist PRN. Bed locked, in lowest position, call light within reach, side rails up x2. Will continue to monitor for changes Q1hr and PRN.
[2019-08-14 08:58] VITALS: BP 95/51
[2019-08-14] MEDS: cefTRIAXone 1GM/50ML D5W 50 ML IV SCH (10:47)
[2019-08-14] MEDS: LACTULOSE 20Gm/30ML SOLN PO PRN (11:10)
[2019-08-14] MEDS: DOCUSATE SOD 100 MG CAP PO PRN (11:10)
[2019-08-14] MEDS: B-COMPLEX W/ C & FOLIC ACID(NEPHROVITE TAB) PO SCH (11:10)
[2019-08-14] MEDS: CLOPIDOGREL BISULFATE 75 MG TAB PO SCH (11:11)
[2019-08-14] MEDS: AZITHROMYCIN 250 MG TAB PO SCH (11:11)
[2019-08-14] MEDS: FAMOTIDINE 20 MG TAB PO SCH (11:11)
[2019-08-14] MEDS: PANTOPRAZOLE 40 MG/10 ML VIAL INJ IV SCH (11:11)
[2019-08-14 12:30] VITALS: BP 94/50
[2019-08-14] MEDS: HYDROcodone-ACET 5/325MG TAB PO PRN (14:22)
[2019-08-14 16:54] VITALS: BP 95/51
[2019-08-14] MEDS: amLODIPine BESYLATE 5 MG TAB PO SCH (17:15)
[2019-08-14 22:00] VITALS: BP 97/48
[2019-08-14] MEDS: LOSARTAN POTASSIUM 50 MG TAB PO SCH (22:00)
[2019-08-14] MEDS: METOPROLOL TARTRATE 25 MG TAB PO SCH (22:00)
[2019-08-14] MEDS: GABAPENTIN 100 MG CAP PO SCH (23:02)
[2019-08-14] MEDS: PRAVASTATIN SODIUM 20 MG TAB PO SCH (23:02)
[2019-08-15] VITALS (7 sets, daily range): BP systolic 88–124; BP diastolic 33–91
[2019-08-15] MEDS: ACETAMINOPHEN 325 MG TAB PO PRN (01:13)
[2019-08-15] MEDS: ACCU-CHEK COMFORT CURVE STRIP VI SCH ×3 (05:58→17:02)
[2019-08-15] MEDS: InsuLIN REG 1unit/0.01ml Soln (100units/ml) SC SCH ×3 (06:00→17:36)
--- NOTE | 2019-08-15 07:45 | NUR ---
Opening Shift Note Assumed care of patient, awake and alert. No S/S of distress/SOB or pain. Instructed on POC and to call for assist PRN, will continue to monitor for changes Q1hr and PRN. Bed locked in lowest position with two side rails up and call light in reach.
[2019-08-15] MEDS: SEVELAMER 800 MG TAB PO SCH ×3 (08:42→17:37)
[2019-08-15] MEDS: PANTOPRAZOLE 40 MG/10 ML VIAL INJ IV SCH (10:32)
[2019-08-15] MEDS: CLOPIDOGREL BISULFATE 75 MG TAB PO SCH (10:32)
[2019-08-15] MEDS: FAMOTIDINE 20 MG TAB PO SCH (10:32)
[2019-08-15] MEDS: cefTRIAXone 1GM/50ML D5W 50 ML IV SCH (10:32)
[2019-08-15] MEDS: B-COMPLEX W/ C & FOLIC ACID(NEPHROVITE TAB) PO SCH (10:32)
[2019-08-15] MEDS: AZITHROMYCIN 250 MG TAB PO SCH (10:32)
[2019-08-15 11:10] LABS: Basophils # (auto) 0 10 ^3/uL (0-0.2); Basophils % (auto) 0.4 % (0.0-2.0); Eosinophils # (auto) 0.2 10 ^3/uL (0-0.8); Eosinophils % (auto) 1.7 % (0.0-7.0); Hematocrit 27.5 % (36.0-46.0); Hemoglobin 8.8 g/dL (12.2-16.2); Lymphocytes # (auto) 0.8 10 ^3/uL (0.4-5.4); Lymphocytes % (auto) 8.1 % (10.0-50.0); Mean Corpuscular Hemoglobin 31.9 pg (28.0-32.0); Mean Corpuscular Hgb Conc. 31.8 g/dL (32.0-36.0); Mean Corpuscular Volume 100.2 fL (80.0-100.0); Monocytes % (auto) 9.5 % (0.0-12.0); Neutrophils % (auto) 80.3 % (37.0-80.0); Platelet Count (auto) 216 10^3/uL (140-450); Red Blood Cells 2.74 10^6/uL (4.0-5.20); Red Cell Distribution Width 17.4 % (11.8-14.3)
[2019-08-15 11:24] LABS: BUN/Creatinine Ratio 9.2; Calcium 8.5 mg/dL (8.5-10.1); Potassium 4.9 mmol/L (3.5-5.1)
--- NOTE | 2019-08-15 11:43 | NUR ---
Nutrition Followup Notes Wt: 81.4 kg Pt was with nurse at time of rounds. Pt with inadequate po intake aeb pt with avg po intake of 25% x 3 days. Consider adding Glucerna TID d/t pt with inadequate oral intake. Est Energy needs BW 72 [id number] kcals (25-30kcal/kgBW), Est Protein needs: 86-93 gms/day (1.2-1.3 gm/kgBW (HD). Will continue to monitor and reassess prn. LABS: BUN 78H, Creat 8.38H, Ca 8.2L, Alb 3.1L GI: Pt had 2 BMs 7/6 per RN doc BS: 13 mod risk, incision at site of sx per RN doc. Please refer to wound assessment report for full details. PES: Altered nutrition related lab values r/t current chronic medical condition aeb elev RFT TG hyperglycemia Comments Will continue to closely monitor pertinent labs, PO intake and skin status prn. Will followup in 3-5 days Consider adding Glucerna 1 carton TID if pt continues to have inadequate oral intake 1) refer to CDE oN DC. 2) consider nephrovite daily and Vit C bid. 3) continue current plan fo care
--- NOTE | 2019-08-15 11:45 | NUR ---
COVID LAB SENT OUT.
--- NOTE | 2019-08-15 13:00 | NUR ---
CRITICAL LAB BUN 85. DR OLMEDO AWARE PATIENT TO HAVE DIALYSIS TOMORROW.
--- NOTE | 2019-08-15 14:00 | NUR ---
Pt refused PT tx with c/o kendra RN informed. Addendum: 08/15/19 at 1420 by Vladislav Scott HOT IRON WORKER Amended: Links added.
--- NOTE | 2019-08-15 16:22 | NUR ---
RE-ASSESSMENT CARROTING MACHINE OPERATOR SPOKE WITH PT'S DAUGHTER NATO WHO CONFIRMED AFTER SPEAKING WITH PT THAT PT AGREES TO SNF PLACEMENT. PT HAS HAD DIFFICULTY TRANSFERRING TO HER WALKER, FAMILY CAN ASSIST AT HOME IF PT IS ABLE TO TRANSFER. PT REFUSED PT TO DAY DUE TO NAUSEA, CARROTING MACHINE OPERATOR SPOKE WITH PT KATI WHO WILL F/U WITH PT 08/15. PT HAS BEEN ACCEPTED AT [facility], PENDING [facility] AUTH WITH CURRENT PT NOTE. CARROTING MACHINE OPERATOR UPDATED BEDSIDE RN. SS TO REMAIN AVAILABLE FOR PT TRANSFER TO SNF.
[2019-08-15] MEDS: amLODIPine BESYLATE 5 MG TAB PO SCH (17:48)
--- NOTE | 2019-08-15 19:20 | NUR ---
Opening Shift Note Assumed care of patient, awake and alert. No S/S of distress/SOB or pain. Instructed on POC and to call for assist PRN, will continue to monitor for changes Q1hr and PRN.
[2019-08-15] MEDS: METOPROLOL TARTRATE 25 MG TAB PO SCH (22:00)
[2019-08-15] MEDS: LOSARTAN POTASSIUM 50 MG TAB PO SCH (22:00)
[2019-08-15] MEDS: PRAVASTATIN SODIUM 20 MG TAB PO SCH (22:14)
[2019-08-15] MEDS: GABAPENTIN 100 MG CAP PO SCH (22:14)
[2019-08-16] VITALS (7 sets, daily range): BP systolic 92–152; BP diastolic 43–97
[2019-08-16] MEDS: ACCU-CHEK COMFORT CURVE STRIP VI SCH ×4 (00:08→17:56)
[2019-08-16] MEDS: InsuLIN REG 1unit/0.01ml Soln (100units/ml) SC SCH ×4 (05:50→17:56)
[2019-08-16] MEDS ORDERED: SODIUM CHL 0.9% 1000 ML BAG XX ONE (07:00)
--- NOTE | 2019-08-16 07:10 | NUR ---
Dialysis nurse at bedside Will continue to monitor.
--- NOTE | 2019-08-16 07:18 | NUR ---
Closing Note Patient status has not changed, endorsed care to dayshift nurse.
[2019-08-16 07:19] LABS: Hemoglobin 7.9 g/dL (12.2-16.2)
[2019-08-16 07:21] LABS: Hematocrit 23.7 % (36.0-46.0); Mean Corpuscular Hgb Conc. 33.3 g/dL (32.0-36.0); Mean Corpuscular Volume 99.3 fL (80.0-100.0); Platelet Count (auto) 202 10^3/uL (140-450); Red Blood Cells 2.38 10^6/uL (4.0-5.20); Red Cell Distribution Width 17.5 % (11.8-14.3)
--- NOTE | 2019-08-16 07:30 | NUR ---
Opening Shift Note Assumed care of patient, upon entering room patient found resting with eyes closed. Respirations are even and unlabored. No S/S of distress/SOB or pain. Dialysis nurse is at bedside. Bed is low, locked with 2x side rails up. Call light is within reach. Instructed on POC and to call for assist PRN, will continue to monitor for changes Q1hr and PRN.
[2019-08-16 07:33] LABS: Band Neutrophils % (manual) 0; Basophils % (manual) 0 (0.0-2.0); Blast Cells 0; Metamyelocytes % 0; Myelocytes % 0; Promyelocytes % 0; Reactive Lymphocytes 0
[2019-08-16 07:48] LABS: Potassium 4.4 mmol/L (3.5-5.1)
[2019-08-16 07:56] LABS: BUN/Creatinine Ratio 9.8; Calcium 8.1 mg/dL (8.5-10.1)
[2019-08-16] MEDS: SEVELAMER 800 MG TAB PO SCH ×3 (08:00→17:56)
[2019-08-16 08:17] LABS: Eosinophils % (manual) 2 (0-7); Lymphocytes % (manual) 11 (10.0-50.0); Monocytes % (manual) 3 (0-12)
[2019-08-16] MEDS: cefTRIAXone 1GM/50ML D5W 50 ML IV SCH (09:00)
[2019-08-16] MEDS: PANTOPRAZOLE 40 MG/10 ML VIAL INJ IV SCH (10:00)
--- NOTE | 2019-08-16 10:15 | NUR ---
No IV access Attempted 2 IV insertions with no success. Patient tolerated well. Will ask another nurse to attempt IV insertion. Will continue to monitor.
[2019-08-16] MEDS: B-COMPLEX W/ C & FOLIC ACID(NEPHROVITE TAB) PO SCH (10:30)
[2019-08-16] MEDS: FAMOTIDINE 20 MG TAB PO SCH (10:30)
[2019-08-16] MEDS: AZITHROMYCIN 250 MG TAB PO SCH (10:30)
[2019-08-16] MEDS: CLOPIDOGREL BISULFATE 75 MG TAB PO SCH (10:31)
--- NOTE | 2019-08-16 11:20 | NUR ---
Patient refusing IV insertion Charge nurse attempted IV insertion twice with no success. Patient is now refusing IV insertion. Explained risks of not having IV access and patient still refused. Will continue to monitor.
--- NOTE | 2019-08-16 12:39 | NUR ---
Dr. Lacy rounding Dr. Lacy is at bedside. aware that this patient is refusing IV access. No new orders received. Will continue to monitor.
--- NOTE | 2019-08-16 12:48 | NUR ---
Spoke with family Spoke with family member Randee. Updated her on current POC and plans for patient being transferred to SNF today. Per Randee she does not want the patient to be sent to SNF until the patients mentation improves. She states that the patient does not sound like herself. Will relay information.
--- NOTE | 2019-08-16 13:04 | NUR ---
Spoke with Dr. Lacy Spoke to Dr. Lacy regarding family members in regards to SNF transfer. Family stated that they would like her mentation to improve before sending her to SNF. Per MD patient is medically stable for transfer. Will proceed with discharge plans.
--- NOTE | 2019-08-16 14:45 | NUR ---
RE-ASSESSMENT PT WAS CLEARED FOR TRANSFER TO SNF, DOLL REPAIRER SPOKE WITH ANGY IN LAW NATO, FAMILY IS AGREEABLE TO SNF TRANSFER TO [facility]. PT ACCEPTED UNDER DR. ROBERSON, ROOM 216B. DOLL REPAIRER RECEIVED AUTHORIZATION FROM [facility] AND COORDINATED TRANSPORT. DOLL REPAIRER UPDATED BEDSIDE RN. SS TO REMAIN AVAILABLE NEEDED. Addendum: 08/16/19 at 1542 by DENIZ MULLINS SS PT'S ROOM AT [facility] IS [address]
--- NOTE | 2019-08-16 15:03 | NUR ---
Attempted to call report to [facility] Per RN at [facility], she has not been given a list of endorsement so she cannot receive report for this patient at this time. She asked if this nurse can call later. Advised RN that transport will be here at 1630 to take patient to [facility]. Will attempt to call for report again in 30 minutes.
--- NOTE | 2019-08-16 15:45 | NUR ---
Attempted to call [facility] To give report for patient being transferred to their facility. Phone is answered and then hung up. Will try again.
--- NOTE | 2019-08-16 16:02 | NUR ---
Attempted to call [facility] To give report for patient being transferred to their facility. Phone is answered and then hung up. Will try again.
--- NOTE | 2019-08-16 16:14 | NUR ---
Attempted to call [facility] To give report for patient being transferred to their facility. Phone rings with no answer or ability to leave voicemail. Will try again.
--- NOTE | 2019-08-16 16:20 | NUR ---
Attempted to call [facility] Phone rings with no answer. Cannot give report at this time.
[2019-08-16] MEDS: amLODIPine BESYLATE 5 MG TAB PO SCH (17:56)
--- NOTE | 2019-08-16 19:06 | NUR ---
Endorsed care Endorsed care to NOC RN. NOC RN aware that patient still has telemetry box and must be removed before transport. [place] [facility]
--- NOTE | 2019-08-16 19:35 | NUR ---
Opening Shift Note Assumed care of patient, awake and alert. No S/S of distress/SOB or pain. Made patient aware of care of plan, waiting to transportation to arrive. Instructed on POC and to call for assist PRN, will continue to monitor for changes Q1hr and PRN.
[2019-08-16] MEDS: HYDROcodone-ACET 5/325MG TAB PO PRN (20:45)
--- NOTE | 2019-08-16 20:45 | NUR ---
Pain Patient c/o pain to stomach 07/19, pain medication administered.
[2019-08-16] MEDS ORDERED: EPOETIN ALFA 10,000 UNIT/1 ML VIAL SC ONE (21:00)
[2019-08-16] MEDS: LOSARTAN POTASSIUM 50 MG TAB PO SCH (21:41)
[2019-08-16] MEDS: GABAPENTIN 100 MG CAP PO SCH (21:41)
[2019-08-16] MEDS: PRAVASTATIN SODIUM 20 MG TAB PO SCH (21:42)
[2019-08-16] MEDS: METOPROLOL TARTRATE 25 MG TAB PO SCH (21:42)
--- NOTE | 2019-08-16 21:45 | NUR ---
RE Pain Patient resting with eyes closed, no sign of pain or distress. will continue to monitor.
[2019-08-17] MEDS: ACCU-CHEK COMFORT CURVE STRIP VI SCH ×3 (00:08→12:00)
[2019-08-17] MEDS: InsuLIN REG 1unit/0.01ml Soln (100units/ml) SC SCH ×3 (00:09→12:00)
[2019-08-17] MEDS: ACETAMINOPHEN 325 MG TAB PO PRN (04:55)
--- NOTE | 2019-08-17 04:55 | NUR ---
Temperature Patient's morning temperature orally 102F. Cooling measures taken and Tylenol administered.
[2019-08-17 05:00] VITALS: BP 124/53
--- NOTE | 2019-08-17 05:10 | NUR ---
Void Patient voided, strong foul odor. Patient cleaned and changed. Will endorsed information to dayshift.
--- NOTE | 2019-08-17 05:55 | NUR ---
RE TEMP Oral tem of 100.9, continuing cooling measures.
--- NOTE | 2019-08-17 07:30 | NUR ---
Closing Note Patient status has not changed, endorsed care to dayshift nurse.
--- NOTE | 2019-08-17 07:40 | NUR ---
Opening Note Received report from hourly shift manager RN. No signs or symptoms of distress noted at this time. Patient is awake and alert. Patient is on 2L NC, respirations even and unlabored. Patient has no IV access at this time. Reviewed plan of care. Patient to transfer today. Bed in low and locked position, call light within reach. Will continue to monitor Q1 hour and PRN.
[2019-08-17] MEDS: SEVELAMER 800 MG TAB PO SCH ×2 (08:00→12:00)
[2019-08-17 08:23] LABS: Basophils # (auto) 0 10 ^3/uL (0-0.2); Basophils % (auto) 0.4 % (0.0-2.0); Eosinophils # (auto) 0.1 10 ^3/uL (0-0.8); Eosinophils % (auto) 0.8 % (0.0-7.0); Hematocrit 27.3 % (36.0-46.0); Hemoglobin 8.6 g/dL (12.2-16.2); Lymphocytes # (auto) 0.8 10 ^3/uL (0.4-5.4); Lymphocytes % (auto) 6.7 % (10.0-50.0); Mean Corpuscular Hemoglobin 31.6 pg (28.0-32.0); Mean Corpuscular Hgb Conc. 31.6 g/dL (32.0-36.0); Monocytes # (auto) 1.2 10 ^3/uL (0-1.3); Neutrophils # (auto) 9.7 10 ^3/uL (1.6-8.6); Neutrophils % (auto) 82.1 % (37.0-80.0); Platelet Count (auto) 230 10^3/uL (140-450); Red Blood Cells 2.73 10^6/uL (4.0-5.20); Red Cell Distribution Width 17.8 % (11.8-14.3); White Blood Cell 11.9 10^3/uL (4.4-10.8)
[2019-08-17 08:43] LABS: BUN/Creatinine Ratio 8.1; Calcium 8.6 mg/dL (8.5-10.1); Potassium 4.3 mmol/L (3.5-5.1)
--- NOTE | 2019-08-17 08:44 | NUR ---
Spoke to Minerva from clinical social work therapist Regarding patients transfer to [facility]. Patient is to be picked up today at 1100. Patient updated on plan of care. Will continue to monitor Q1 hour and PRN.
[2019-08-17 09:00] VITALS: BP 124/50
--- NOTE | 2019-08-17 09:30 | NUR ---
Report called to [facility] Report called to Saira at [facility]. All questions and concerns addressed. Awaiting transportation. Will continue to monitor Q1 hour and PRN.
[2019-08-17] MEDS: FAMOTIDINE 20 MG TAB PO SCH (10:00)
[2019-08-17] MEDS: CLOPIDOGREL BISULFATE 75 MG TAB PO SCH (10:00)
[2019-08-17] MEDS: PANTOPRAZOLE 40 MG/10 ML VIAL INJ IV SCH (10:00)
[2019-08-17] MEDS: AZITHROMYCIN 250 MG TAB PO SCH (10:00)
[2019-08-17] MEDS: B-COMPLEX W/ C & FOLIC ACID(NEPHROVITE TAB) PO SCH (10:00)
--- NOTE | 2019-08-17 12:00 | NUR ---
Transfer to [facility] Discharge instructions given as ordered. All questions and concerns addressed. Patient verbalized understanding. Medication reconciliation form completed and copy given to patient.Telemetry unit returned to ICU. Report given to Saira at [facility]. Patient transported by [employer] transportation with all personal belongings. No distress noted at time of departure.
[2019-08-18 09:31] LABS: Hepatitis B Surface Antibody Positive
[2019-08-18 12:43] LABS: Hepatitis B Core Total AB Negative; Hepatitis B Surface Antigen Negative (Negative)
== END 2019-08-17 11:40 | DRG 710 ==
LOC: ER 14:46 → EDBD 14:46 → EDUNIT# 14:46 → TELE 14:47 → TELE-WESTW 08-07 04:10
PROVIDERS: ADMIT Hospitalist; ATTEND Family Medicine
PROC: 5A1D70Z Performance of Urinary Filtration, Intermittent, Less than 6 Hours Per Day (ICD-10-PCS; 2019-08-09)
PROC: 06PY03Z Removal of Infusion Device from Lower Vein, Open Approach (ICD-10-PCS; principal; 2019-08-10 13:35)
PROC: 5A1D70Z Performance of Urinary Filtration, Intermittent, Less than 6 Hours Per Day (ICD-10-PCS; 2019-08-13)
PROC: 5A1D70Z Performance of Urinary Filtration, Intermittent, Less than 6 Hours Per Day (ICD-10-PCS; 2019-08-16)
DX: A41.9 Sepsis, unspecified organism (principal); I13.2 Hypertensive heart and chronic kidney disease with heart failure and with stage 5 chronic kidney disease, or end stage renal disease; I82.622 Acute embolism and thrombosis of deep veins of left upper extremity; E11.65 Type 2 diabetes mellitus with hyperglycemia; E11.22 Type 2 diabetes mellitus with diabetic chronic kidney disease; I50.31 Acute diastolic (congestive) heart failure; E87.5 Hyperkalemia; N18.6 End stage renal disease; E87.1 Hypo-osmolality and hyponatremia; Z99.2 Dependence on renal dialysis; D63.8 Anemia in other chronic diseases classified elsewhere; K21.9 Gastro-esophageal reflux disease without esophagitis; F03.90 Unspecified dementia, unspecified severity, without behavioral disturbance, psychotic disturbance, mood disturbance, and anxiety; M79.603 Pain in arm, unspecified; E78.5 Hyperlipidemia, unspecified; I48.0 Paroxysmal atrial fibrillation; Z79.02 Long term (current) use of antithrombotics/antiplatelets; Z79.4 Long term (current) use of insulin; Z82.49 Family history of ischemic heart disease and other diseases of the circulatory system; J96.01 Acute respiratory failure with hypoxia; Z68.30 Body mass index [BMI] 30.0-30.9, adult; E44.0 Moderate protein-calorie malnutrition; Z95.5 Presence of coronary angioplasty implant and graft; W19.XXXA Unspecified fall, initial encounter; Y93.89 Activity, other specified; Y92.89 Other specified places as the place of occurrence of the external cause; Y99.8 Other external cause status; Z20.828 Contact with and (suspected) exposure to other viral communicable diseases
CPT/HCPCS: 36415; 71045; 76700; 80048; 80053; 80061; 82962; 83036; 83605; 84443; 84484; 85007; 85025; 85027; 85610; 85730; 86704; 86706; 87040; 87070; 87075; 87081; 87205; 87340; 90935; 93005; 93971; 97163; C9113; G0378; J0696; J0885; J1642; J1815; J2001; J2405; J3490; P9047

== ENCOUNTER 2019-09-15 10:11 | Inpatient (IN) | payer MEDICARE, MEDICAID ==
[~2019-09-15] VITALS: Ht 160 cm; Wt 76.0 kg
[2019-09-15 12:08] LABS: Basophils # (auto) 0 10 ^3/uL (0-0.2); Basophils % (auto) 0.4 % (0.0-2.0); Eosinophils # (auto) 0 10 ^3/uL (0-0.8); Hematocrit 30.4 % (36.0-46.0); Hemoglobin 9.8 g/dL (12.2-16.2); Lymphocytes # (auto) 0.9 10 ^3/uL (0.4-5.4); Lymphocytes % (auto) 11.6 % (10.0-50.0); Mean Corpuscular Hemoglobin 31.1 pg (28.0-32.0); Mean Corpuscular Hgb Conc. 32.1 g/dL (32.0-36.0); Mean Corpuscular Volume 96.8 fL (80.0-100.0); Monocytes # (auto) 0.6 10 ^3/uL (0-1.3); Neutrophils # (auto) 6.4 10 ^3/uL (1.6-8.6); Platelet Count (auto) 127 10^3/uL (140-450); Red Blood Cells 3.14 10^6/uL (4.0-5.20); Red Cell Distribution Width 17.3 % (11.8-14.3)
[2019-09-15 12:37] LABS: Albumin 2.8 g/dL (3.4-5.0); Anion Gap 15 (5-15); Blood Alcohol < 3.0 mg/dL (0-5); Blood Urea Nitrogen 58 mg/dL (7-18); Calcium 7.5 mg/dL (8.5-10.1); Carbon Dioxide 23 mmol/L (21-32); Chloride 95 mmol/L (98-107); Glucose 197 mg/dL (74-106); Magnesium 2.5 mg/dL (1.6-2.6); Potassium 4.5 mmol/L (3.5-5.1); Sodium 133 mmol/L (136-145)
[2019-09-15 12:39] LABS: Alanine Aminotransferase 23 U/L (13-56); Aspartate Aminotransferase 33 U/L (15-37); BUN/Creatinine Ratio 7.2; GFR African American 6 mL/min; GFR Non-African American 5 mL/min
[2019-09-15 12:44] LABS: Alkaline Phosphatase 200 U/L (45-117); Bilirubin, Total 0.6 mg/dL (0.2-1.0); Total Protein 6.8 g/dL (6.4-8.2)
[2019-09-15] MEDS ORDERED: DEXTROSE (50%) 50ML SYRG IV PRN (13:15)
[2019-09-15] MEDS ORDERED: NITROGLYCERIN 0.4 MG SL TAB SL PRN (13:15)
[2019-09-15] MEDS ORDERED: cefTRIAXone SOD 1,000 MG VL IM ONE (13:15)
[2019-09-15] MEDS ORDERED: cefTRIAXone 1GM/50ML D5W 50 ML IV ONE (14:15)
[2019-09-15 14:28] LABS: Basophils # (auto) 0 10 ^3/uL (0-0.2); Basophils % (auto) 0.2 % (0.0-2.0); Eosinophils # (auto) 0 10 ^3/uL (0-0.8); Hematocrit 30.9 % (36.0-46.0); Lymphocytes # (auto) 1.1 10 ^3/uL (0.4-5.4); Lymphocytes % (auto) 15.5 % (10.0-50.0); Mean Corpuscular Hemoglobin 31.5 pg (28.0-32.0); Mean Corpuscular Hgb Conc. 32.3 g/dL (32.0-36.0); Mean Corpuscular Volume 97.5 fL (80.0-100.0); Monocytes # (auto) 0.7 10 ^3/uL (0-1.3); Monocytes % (auto) 8.9 % (0.0-12.0); Neutrophils # (auto) 5.5 10 ^3/uL (1.6-8.6); Neutrophils % (auto) 75.4 % (37.0-80.0); Nucleated Red Blood Cells % 0.1 %; Platelet Count (auto) 120 10^3/uL (140-450); Red Blood Cells 3.17 10^6/uL (4.0-5.20); Red Cell Distribution Width 17.1 % (11.8-14.3); White Blood Cell 7.3 10^3/uL (4.4-10.8)
[2019-09-15] MEDS: ACCU-CHEK COMFORT CURVE STRIP VI SCH ×2 (15:30→20:02)
--- NOTE | 2019-09-15 22:00 | NUR ---
Patient Brought to Unit from ER Patient is alert and oriented. Patient came to unit with phone and phone stone rougher. Patient laying in bed supine w/ HOB at 45 degrees. Patient has no pain noted and no s/s of distress. Will continue to monitor patient.
[2019-09-15 22:10] VITALS: BP 136/68
[2019-09-16] VITALS (7 sets, daily range): BP systolic 109–158; BP diastolic 44–96
[2019-09-16] MEDS: ACCU-CHEK COMFORT CURVE STRIP VI SCH ×6 (00:50→20:31)
--- NOTE | 2019-09-16 09:40 | NUR ---
ARMORED TRUCK DRIVER AMARO AT BEDSIDE. UPDATED ARMORED TRUCK DRIVER ON PATIENT'S STATUS INCLUDING COUGH AND CHILLS. ARMORED TRUCK DRIVER IS AWARE AND ORDERED IN HOUSE COVID TESTING.
[2019-09-16] MEDS ORDERED: PANTOPRAZOLE 40 MG/10 ML VIAL INJ IV SCH (10:00)
[2019-09-16] MEDS: ENOXAPARIN SOD 30 MG/0.3 ML SYRINGE SC SCH (10:01)
--- NOTE | 2019-09-16 10:30 | NUR ---
HAND OFF REPORT GIVEN TO CARMINA ALVAREZ.
[2019-09-16] MEDS ORDERED: cefTRIAXone 1GM/50ML D5W 50 ML IV ONE (10:45)
[2019-09-16] MEDS ORDERED: VANCOMYCIN PER PHARMACY 0 MG IV SCH (10:45)
[2019-09-16] MEDS ORDERED: ZINC SULFATE 220mg CAP or TAB PO ONE (10:45)
[2019-09-16] MEDS ORDERED: ASCORBIC ACID 500 MG TAB PO ONE (10:45)
[2019-09-16] MEDS ORDERED: CHOLECALCIFEROL (VITD3) 2,000 UNIT CAP PO ONE (10:45)
[2019-09-16] MEDS ORDERED: DEXTROSE (50%) 50ML SYRG IV PRN (10:45)
[2019-09-16] MEDS ORDERED: ASPirin 81 mg TAB PO ONE (10:45)
[2019-09-16] MEDS ORDERED: CLOPIDOGREL BISULFATE 75 MG TAB PO ONE (10:45)
[2019-09-16] MEDS ORDERED: B-COMPLEX W/ C & FOLIC ACID(NEPHROVITE TAB) PO ONE (10:45)
--- NOTE | 2019-09-16 10:48 | NUR ---
MD DURON AT BEDSIDE UPDATED MD ON PATIENT'S STATUS INCLUDING FEVER OF 103.1, COUGH AND CHILLS. IS AWARE. MD WILL PUT IN NEW ORDERS.
[2019-09-16] MEDS ORDERED: SODIUM CHL 0.9% 1000 ML BAG XX ONE (11:30)
[2019-09-16] MEDS: SEVELAMER 800 MG TAB PO SCH ×2 (12:00→18:00)
--- NOTE | 2019-09-16 13:26 | NUR ---
PER HORTICULTURAL WORKER, PATIENT IS NEXT FOR DIALYSIS.
[2019-09-16] MEDS: InsuLIN REG 1unit/0.01ml Soln (100units/ml) SC SCH ×3 (13:38→20:32)
--- NOTE | 2019-09-16 15:15 | NUR ---
WET CLEANER MACHINE AT BEDSIDE.
[2019-09-16] MEDS: ACETAMINOPHEN 325 MG TAB PO PRN ×2 (15:25→22:39)
--- NOTE | 2019-09-16 16:52 | NUR ---
Assessment Patient is a 73-year-old female who is alert and oriented. Prior to admission patient lived home with family and functioned with assistance. Per patient family helps her with her ADLs. Per patient she is on dialysis with [facility] on , , at 9:30 am. Patient informed me she has a walker with seat for home use. Patient PCP is Dr. Goldberg. Per patient she will return to her prior living arrangement post discharge and [facility] transportation will need to be arranged. Advised patient there is a social service consult for a wheelchair. Informed patient clinical information will be faxed to [facility] and if she meets criteria they will deliver wheelchair to [facility]. Informed patient she has a right to participate in all discharge planning. Patient verbalized understanding and agreed to discharge plan. Faxed clinical information to [facility] requesting for wheelchair to be deliver to the [facility]. Addendum: 09/16/19 at 1655 by MALAIKA LYNN Amended: Links added.
[2019-09-16] MEDS ORDERED: VANCOMYCIN 1GM/250ML 250 ML IV ONE (18:00)
--- NOTE | 2019-09-16 18:16 | NUR ---
PATIENT STATES SHE IS NOT ABLE TO URINATE AT THIS TIME.
--- NOTE | 2019-09-16 19:20 | NUR ---
Opening Shift Note Assumed care of patient, awake and alert. No S/S of distress/SOB or pain. Patient on 4L NC. Patient safety measures in place bed in lowest position, side rails up x2, and call light within reach.Instructed on POC and to call for assist PRN, will continue to monitor for changes Q1hr and PRN.
[2019-09-16 20:05] LABS: Basophils # (auto) 0 10 ^3/uL (0-0.2); Basophils % (auto) 0.4 % (0.0-2.0); Eosinophils # (auto) 0 10 ^3/uL (0-0.8); Hematocrit 32.7 % (36.0-46.0); Hemoglobin 10.5 g/dL (12.2-16.2); Lymphocytes # (auto) 0.9 10 ^3/uL (0.4-5.4); Lymphocytes % (auto) 11.6 % (10.0-50.0); Mean Corpuscular Hemoglobin 30.8 pg (28.0-32.0); Monocytes # (auto) 0.4 10 ^3/uL (0-1.3); Monocytes % (auto) 5.7 % (0.0-12.0); Neutrophils # (auto) 6.1 10 ^3/uL (1.6-8.6); Neutrophils % (auto) 82.3 % (37.0-80.0); Nucleated Red Blood Cells % 0.1 %; Platelet Count (auto) 133 10^3/uL (140-450); Red Blood Cells 3.41 10^6/uL (4.0-5.20); Red Cell Distribution Width 16.8 % (11.8-14.3); White Blood Cell 7.4 10^3/uL (4.4-10.8)
[2019-09-16 20:21] LABS: Albumin 2.9 g/dL (3.4-5.0); Potassium 4.1 mmol/L (3.5-5.1)
[2019-09-16 20:25] LABS: BUN/Creatinine Ratio 6.5; Bilirubin, Total 0.6 mg/dL (0.2-1.0); Total Protein 7.2 g/dL (6.4-8.2)
[2019-09-16] MEDS ORDERED: BUDESONIDE (INHALATION) 0.5 MG/2 ML NEB NEB SCH (22:00)
[2019-09-16] MEDS: ATORVASTATIN 20 MG TAB PO SCH (22:24)
--- NOTE | 2019-09-16 22:39 | NUR ---
Patient provided Tylenol for temperature of 103.1. Cooling measures also initiated. Will continue to monitor.
--- NOTE | 2019-09-16 23:39 | NUR ---
Patient temperature reassessed, patient 102.5. Patient removed the ice packs provided to help cool off. Reeducated patient. Will reassess.
[2019-09-16] MEDS: BUDESONIDE (INHALATION) 180 MCG IH IN SCH (23:48)
--- NOTE | 2019-09-17 01:25 | NUR ---
Patient's temperature reassessed 100.8 cooling measures continued to applied. Will continue to monitor.
[2019-09-17] MEDS: ACCU-CHEK COMFORT CURVE STRIP VI SCH ×7 (01:37→23:36)
[2019-09-17] MEDS: InsuLIN REG 1unit/0.01ml Soln (100units/ml) SC SCH ×6 (04:00→21:22)
--- NOTE | 2019-09-17 05:22 | NUR ---
Patient's temperature 99.4 patient refusing cooling measures. Patient educated on risk and benefits. Patient verbalized understanding. Patient refused. Will continue to monitor.
[2019-09-17 06:00] VITALS: BP 90/69
[2019-09-17] MEDS: BUDESONIDE (INHALATION) 180 MCG IH IN SCH ×2 (07:13→22:47)
[2019-09-17 09:00] VITALS: BP 139/69
[2019-09-17] MEDS ORDERED: cefTRIAXone 1GM/50ML D5W 50 ML IV SCH (09:00)
[2019-09-17] MEDS: SEVELAMER 800 MG TAB PO SCH ×3 (09:24→18:45)
[2019-09-17] MEDS: ZINC SULFATE 220mg CAP or TAB PO SCH (09:25)
[2019-09-17] MEDS: ASPirin 81 mg TAB PO SCH (09:25)
[2019-09-17] MEDS: CHOLECALCIFEROL (VITD3) 2,000 UNIT CAP PO SCH (09:26)
[2019-09-17] MEDS: ASCORBIC ACID 500 MG TAB PO SCH (09:26)
[2019-09-17] MEDS: GABAPENTIN 100 MG CAP PO SCH (09:26)
[2019-09-17] MEDS: CLOPIDOGREL BISULFATE 75 MG TAB PO SCH (09:26)
[2019-09-17] MEDS: B-COMPLEX W/ C & FOLIC ACID(NEPHROVITE TAB) PO SCH (09:26)
[2019-09-17] MEDS: PANTOPRAZOLE 40 MG TAB PO SCH (09:26)
[2019-09-17] MEDS: ENOXAPARIN SOD 30 MG/0.3 ML SYRINGE SC SCH (09:27)
[2019-09-17] MEDS: ACETAMINOPHEN 325 MG TAB PO PRN ×2 (09:27→23:37)
[2019-09-17] MEDS ORDERED: PIPERACILLIN-TAZOB 2.25GM 50 ML IV ONE (10:30)
[2019-09-17 13:00] VITALS: BP 112/49
--- NOTE | 2019-09-17 16:32 | NUR ---
PER FAMILY PATIENT USES 2-3L OXYGEN AT HOME.
[2019-09-17 17:00] VITALS: BP 127/56
--- NOTE | 2019-09-17 19:30 | NUR ---
Opening Shift Note Assumed care of patient, awake, alert and oriented. Respirations 20 bpm, O2 saturation 97% on 3L nasal cannula. Bed in lowest locked position with side rails up x 2, call light within reach. Instructed on POC with translation from May TANK SYSTEMS MAINTAINER and encouraged to call for assistance, all questions and concerns addressed. Will continue to monitor Q1 hr and PRN.
--- NOTE | 2019-09-17 19:58 | NUR ---
Patient refusing lab draws at this time. Patient educated by firearms sales associate and this RN on the risks and benefits of not having labs drawn, patient rolled over in bed away from aforementioned staff and continued to refuse stating that we were "bothering [her]." District Court Justice to try again later in shift to obtain labs. Patient shows no s/s of distress. Will continue to monitor.
[2019-09-17] MEDS: ATORVASTATIN 20 MG TAB PO SCH (21:05)
[2019-09-17] MEDS: PIPERACILLIN-TAZOB 2.25GM 50 ML IV SCH (21:05)
[2019-09-17 22:00] VITALS: BP 129/99
--- NOTE | 2019-09-17 22:09 | NUR ---
Patient requesting "something for [her] cough". Non productive cough noted. rn call center hospitalist paged, awaiting call back at this time.
--- NOTE | 2019-09-17 22:11 | NUR ---
Return call from energy economist hospitalist Aristeo Bates MD, new order received for Robitussin 10 ML every six hours PRN cough. Order read back and verified, will implement as ordered and continue to monitor.
[2019-09-17] MEDS: guaiFENesin-DM 100/10mg/5ml SYR PO PRN (23:37)
--- NOTE | 2019-09-18 | NUR ---
Patient again refusing lab draws at this time. Patient educated by chocolate coater, La DAVIS, and this RN on the risks and benefits of not having labs drawn multiple times, patient turned away from aforementioned staff and stated, "No blood. And you guys talk too much." Manager Lan to try again later in shift to obtain labs. Patient shows no s/s of distress. Will continue care.
--- NOTE | 2019-09-18 00:37 | NUR ---
Temperature now 101.4 Fahrenheit orally. Ice packs remain in place under arms, ice water remains provided for patient, blankets remain removed from patient, temperature of room remains decreased. Will continue to monitor.
[2019-09-18] MEDS: ACCU-CHEK COMFORT CURVE STRIP VI SCH ×5 (04:00→19:57)
[2019-09-18] MEDS: InsuLIN REG 1unit/0.01ml Soln (100units/ml) SC SCH ×6 (04:00→19:57)
[2019-09-18 05:00] VITALS: BP 124/42
--- NOTE | 2019-09-18 05:15 | NUR ---
Linens changed and patient positioned for comfort. Patient tolerated well. Will continue care.
--- NOTE | 2019-09-18 07:30 | NUR ---
Closing Note Patient lying in bed, eyes closed, respirations even and unlabored, appears asleep. On 3 liters nasal cannula, pulse oxygenation at 95%. No s/s of distress. Call light within reach. Care endorsed to dayshift RN.
[2019-09-18] MEDS: SEVELAMER 800 MG TAB PO SCH ×3 (08:00→18:24)
[2019-09-18 09:00] VITALS: BP 129/50
[2019-09-18] MEDS: CHOLECALCIFEROL (VITD3) 2,000 UNIT CAP PO SCH (10:00)
[2019-09-18] MEDS: PANTOPRAZOLE 40 MG TAB PO SCH (10:30)
[2019-09-18] MEDS: GABAPENTIN 100 MG CAP PO SCH (10:30)
[2019-09-18] MEDS: ACETAMINOPHEN 325 MG TAB PO PRN (10:30)
[2019-09-18] MEDS: B-COMPLEX W/ C & FOLIC ACID(NEPHROVITE TAB) PO SCH (10:30)
[2019-09-18] MEDS: ZINC SULFATE 220mg CAP or TAB PO SCH (10:30)
[2019-09-18] MEDS: ASCORBIC ACID 500 MG TAB PO SCH (10:30)
[2019-09-18] MEDS: ASPirin 81 mg TAB PO SCH (10:30)
[2019-09-18] MEDS: PIPERACILLIN-TAZOB 2.25GM 50 ML IV SCH ×2 (10:31→22:20)
[2019-09-18] MEDS: ENOXAPARIN SOD 30 MG/0.3 ML SYRINGE SC SCH (10:31)
[2019-09-18] MEDS: guaiFENesin-DM 100/10mg/5ml SYR PO PRN (10:32)
[2019-09-18] MEDS: CLOPIDOGREL BISULFATE 75 MG TAB PO SCH (10:43)
[2019-09-18 13:00] VITALS: BP 111/32
--- NOTE | 2019-09-18 14:13 | NUR ---
Nutrition Assessment Notes please see attached link for complete assessment Est Energy needs BW 74 [id number] kcals (25-27 kcal/kgBW), Est Protein needs: 88-96 gms/day (1.2-1.3 gm/kgBW r/t HD). Will continue to monitor and reassess prn. Addendum: 09/18/19 at [address] Amended: Links added.
[2019-09-18] MEDS: BUDESONIDE (INHALATION) 180 MCG IH IN SCH ×2 (16:43→21:54)
[2019-09-18 17:00] VITALS: BP 121/42
[2019-09-18 17:38] LABS: Urine Bacteria FEW /hpf (None Seen); Urine Blood 1+ /uL (Negative); Urine Specific Gravity 1.018 (1.001-1.035); Urine WBC 482 /hpf (0 - 5); Urine WBC Clumps PRESENT /hpf (None Seen)
--- NOTE | 2019-09-18 19:25 | NUR ---
Opening Shift Note Assumed care of patient. Patient is awake, alert, and oriented, resting in bed. Respirations are regular and non-labored. No s/s of respiratory distress, pain, nausea. O2 saturation is 95% on 3L nasal cannula. Bed in lowest locked position, side rails up x 2, call light within reach. Tele box matches diagnostic cardiac sonographer. Leads are correctly applied. Instructed on POC and encouraged to call for assistance as needed. Will continue to monitor Q1 hr and PRN.
[2019-09-18 20:00] VITALS: BP 114/62
[2019-09-18 22:00] VITALS: BP 122/61
[2019-09-18] MEDS: ATORVASTATIN 20 MG TAB PO SCH (22:20)
[2019-09-18 23:27] LABS: Basophils # (auto) 0 10 ^3/uL (0-0.2); Basophils % (auto) 0.7 % (0.0-2.0); Eosinophils # (auto) 0.1 10 ^3/uL (0-0.8); Eosinophils % (auto) 1.6 % (0.0-7.0); Hematocrit 27.7 % (36.0-46.0); Lymphocytes # (auto) 0.7 10 ^3/uL (0.4-5.4); Lymphocytes % (auto) 13.5 % (10.0-50.0); Mean Corpuscular Hemoglobin 30.7 pg (28.0-32.0); Mean Corpuscular Hgb Conc. 32.5 g/dL (32.0-36.0); Mean Corpuscular Volume 94.5 fL (80.0-100.0); Monocytes # (auto) 0.3 10 ^3/uL (0-1.3); Monocytes % (auto) 5.2 % (0.0-12.0); Neutrophils # (auto) 3.9 10 ^3/uL (1.6-8.6); Platelet Count (auto) 104 10^3/uL (140-450); Red Blood Cells 2.93 10^6/uL (4.0-5.20); Red Cell Distribution Width 16.7 % (11.8-14.3); White Blood Cell 4.9 10^3/uL (4.4-10.8)
[2019-09-18 23:48] LABS: Albumin 2.4 g/dL (3.4-5.0); BUN/Creatinine Ratio 7.7; Calcium 7.7 mg/dL (8.5-10.1); Potassium 4.1 mmol/L (3.5-5.1)
[2019-09-18 23:55] LABS: Bilirubin, Total 0.4 mg/dL (0.2-1.0); Total Protein 6.6 g/dL (6.4-8.2)
[2019-09-19] MEDS: ACCU-CHEK COMFORT CURVE STRIP VI SCH ×7 (00:04→23:41)
[2019-09-19] MEDS: InsuLIN REG 1unit/0.01ml Soln (100units/ml) SC SCH ×7 (00:12→23:42)
[2019-09-19 05:00] VITALS: BP 102/59
[2019-09-19] MEDS: BUDESONIDE (INHALATION) 180 MCG IH IN SCH ×2 (07:47→22:59)
[2019-09-19] MEDS: SEVELAMER 800 MG TAB PO SCH ×3 (08:17→17:38)
[2019-09-19 09:00] VITALS: BP 107/43
[2019-09-19] MEDS: ASCORBIC ACID 500 MG TAB PO SCH ×2 (10:00→10:06)
[2019-09-19] MEDS: ZINC SULFATE 220mg CAP or TAB PO SCH ×2 (10:00→10:03)
[2019-09-19] MEDS: CHOLECALCIFEROL (VITD3) 2,000 UNIT CAP PO SCH ×2 (10:00→10:07)
--- NOTE | 2019-09-19 10:00 | NUR ---
Patient on 3L NC, patient wears 02 at home 2-3L, and is saturating 95%, patient does not want oxygen to be decreased.
[2019-09-19] MEDS: ASPirin 81 mg TAB PO SCH (10:03)
[2019-09-19] MEDS: GABAPENTIN 100 MG CAP PO SCH (10:03)
[2019-09-19] MEDS: PIPERACILLIN-TAZOB 2.25GM 50 ML IV SCH (10:03)
[2019-09-19] MEDS: B-COMPLEX W/ C & FOLIC ACID(NEPHROVITE TAB) PO SCH (10:03)
[2019-09-19] MEDS: PANTOPRAZOLE 40 MG TAB PO SCH (10:04)
[2019-09-19] MEDS: CLOPIDOGREL BISULFATE 75 MG TAB PO SCH (10:04)
[2019-09-19] MEDS: ENOXAPARIN SOD 30 MG/0.3 ML SYRINGE SC SCH (10:07)
--- NOTE | 2019-09-19 10:25 | NUR ---
GOWN, AND PADS CHANGED. PATIENT USED BED PAD AND HAD NORMAL BOWEL MOVEMENT. SURGICAL TECHNOLOGIST AND MYSELF PULLED UP PATIENT IN BED AND REPOSITIONED FOR COMFORT.
--- NOTE | 2019-09-19 10:30 | NUR ---
NURSE AT BEDSIDE TO TRANSLATE FOR PATIENT.
--- NOTE | 2019-09-19 12:04 | NUR ---
Patient apprehensive about having blood sugars checked, patients get very agitated when we give her medications and care, patient says it is too many pills and she doesn't want to be poked. However she allowed me to check her blood sugars as ordered.
[2019-09-19 12:46] VITALS: BP 107/43
[2019-09-19 13:00] VITALS: BP 150/64
[2019-09-19] MEDS ORDERED: EPOETIN ALFA 4,000 UNIT/ML VL SC ONE (13:00)
[2019-09-19] MEDS ORDERED: SODIUM CHL 0.9% 1000 ML BAG XX ONE (13:00)
--- NOTE | 2019-09-19 15:27 | NUR ---
Dialysis completed. BP 107/54 hr 61,DSG CDI, 2L pulled. patient tolerated well.
--- NOTE | 2019-09-19 16:01 | NUR ---
Patient irritated and doesn't want her blood sugar checked.
[2019-09-19 17:00] VITALS: BP 142/51
--- NOTE | 2019-09-19 17:53 | NUR ---
Patient remains irritated at staff, says the coffee is very bad here. Did not want me to connect Edward, but after I told her what it was for she reluctantly put out her arm for me to connect her.
[2019-09-19] MEDS ORDERED: VANCOMYCIN 1GM/250ML 250 ML IV ONE (18:00)
--- NOTE | 2019-09-19 19:42 | NUR ---
Called/paged called re:temperature . Waiting for call back. Continue care.
--- NOTE | 2019-09-19 19:50 | NUR ---
temperature pt temperature is 100.6 gave Tylenol po will reassess
--- NOTE | 2019-09-19 19:50 | NUR ---
returned call returned call, updated on patient status and reason for call, new orders received stated to give the pt her prn tylenol po 650mg and put in a order for blood culture. order read back and verified by . Continue care.
[2019-09-19] MEDS: ACETAMINOPHEN 325 MG TAB PO PRN (20:02)
--- NOTE | 2019-09-19 21:43 | NUR ---
latest temperature pt temperature is 102.5 medication not due will applied cooling measure
[2019-09-19] MEDS: ATORVASTATIN 20 MG TAB PO SCH (21:48)
[2019-09-19] MEDS: guaiFENesin-DM 100/10mg/5ml SYR PO PRN (21:51)
[2019-09-19 22:00] VITALS: BP 150/44
--- NOTE | 2019-09-19 22:15 | NUR ---
latest temperature pt temperature is 99.8 medication not due will applied cooling measure
--- NOTE | 2019-09-19 23:00 | NUR ---
latest temperature pt temperature is 98.7 medication not due will continue to monitoring
--- NOTE | 2019-09-20 02:11 | NUR ---
Opening Shift Note Assumed care of patient, awake and alert. No S/S of distress/SOB or pain. Instructed on POC and to call for assist PRN. Bed in lowest locked position, call light within reach, side rails up x2. Will continue to monitor for changes Q1hr and PRN. Addendum: 09/20/19 at 0214 by KANCHAN PABON RN this note is for 09/19/2019 19:00
[2019-09-20] MEDS: ACCU-CHEK COMFORT CURVE STRIP VI SCH ×5 (03:41→20:32)
[2019-09-20] MEDS: InsuLIN REG 1unit/0.01ml Soln (100units/ml) SC SCH ×5 (03:41→20:31)
[2019-09-20 05:15] VITALS: BP 148/95
[2019-09-20] MEDS: BUDESONIDE (INHALATION) 180 MCG IH IN SCH ×2 (07:08→22:11)
[2019-09-20] MEDS: SEVELAMER 800 MG TAB PO SCH ×3 (08:00→18:00)
[2019-09-20 09:30] VITALS: BP 102/74
[2019-09-20] MEDS: ASPirin 81 mg TAB PO SCH (10:27)
[2019-09-20] MEDS: CLOPIDOGREL BISULFATE 75 MG TAB PO SCH (10:27)
[2019-09-20] MEDS: PANTOPRAZOLE 40 MG TAB PO SCH (10:27)
[2019-09-20] MEDS: ASCORBIC ACID 500 MG TAB PO SCH (10:27)
[2019-09-20] MEDS: cefTRIAXone 1GM/50ML D5W 50 ML IV SCH (10:27)
[2019-09-20] MEDS: CHOLECALCIFEROL (VITD3) 2,000 UNIT CAP PO SCH (10:27)
[2019-09-20] MEDS: GABAPENTIN 100 MG CAP PO SCH (10:27)
[2019-09-20] MEDS: ZINC SULFATE 220mg CAP or TAB PO SCH (10:27)
[2019-09-20] MEDS: B-COMPLEX W/ C & FOLIC ACID(NEPHROVITE TAB) PO SCH (10:27)
[2019-09-20] MEDS: ACETAMINOPHEN 325 MG TAB PO PRN (11:20)
[2019-09-20] MEDS ORDERED: DexAMETHasone SOD PHOS 10MG/1ML VIAL INJ IV ONE (12:15)
--- NOTE | 2019-09-20 12:30 | NUR ---
at bedside MD Pace at bedside, aware of patient's status including increased temp. Now 99.7 after cooling measures and Tylenol as ordered. MD aware of patient's refusal of blood draw and pt noted not eating, insul not given for BS 140 latest read. New orders received for convalescent plasma to be given. Order put in and house thuy Sánchez notified, awaiting Stat T/S at this time to be drawn. Patient explained all risks and benefits by MD and agrees to plasma transfusion. Randee, patient's daughter notified as requested per patient tel [phone] she verbalized understanding and agrees to treatment. Per Randee, if patient continues to refuse "anything" she can talk to her mom and further explain interventions if needed. Consents signed and placed in chart. Patient currently on 5 L n/c no sob noted at this time. Pt states intermittent pain to left hand but denies at this time, MD aware and states chronic issue d/t fistula. Cont care
[2019-09-20 13:06] VITALS: BP 135/55
--- NOTE | 2019-09-20 14:20 | NUR ---
Regarding T/S Spoke to Jackeline in lab and requested tech to come up to draw pt stat for convalescent plasma transfusion. Per Jackeline it "might be a while since it is in the covid side" Tech notified that Dr Pace ordered stat. Awaiting T/S
[2019-09-20 15:09] LABS: Basophils # (auto) 0 10 ^3/uL (0-0.2); Basophils % (auto) 0.7 % (0.0-2.0); Eosinophils # (auto) 0 10 ^3/uL (0-0.8); Eosinophils % (auto) 0.1 % (0.0-7.0); Hemoglobin 9.5 g/dL (12.2-16.2); Lymphocytes # (auto) 0.5 10 ^3/uL (0.4-5.4); Lymphocytes % (auto) 7.9 % (10.0-50.0); Mean Corpuscular Hgb Conc. 31.5 g/dL (32.0-36.0); Mean Corpuscular Volume 95.2 fL (80.0-100.0); Monocytes # (auto) 0.2 10 ^3/uL (0-1.3); Monocytes % (auto) 3.8 % (0.0-12.0); Neutrophils # (auto) 5.2 10 ^3/uL (1.6-8.6); Neutrophils % (auto) 87.5 % (37.0-80.0); Nucleated Red Blood Cells % 0.1 %; Platelet Count (auto) 133 10^3/uL (140-450); Red Blood Cells 3.15 10^6/uL (4.0-5.20); Red Cell Distribution Width 16.7 % (11.8-14.3); White Blood Cell 5.9 10^3/uL (4.4-10.8)
[2019-09-20 15:22] LABS: BUN/Creatinine Ratio 6.3; Calcium 7.9 mg/dL (8.5-10.1); Potassium 4.4 mmol/L (3.5-5.1)
[2019-09-20 16:54] VITALS: BP 129/69
--- NOTE | 2019-09-20 16:55 | NUR ---
Regarding T/S T/S done, sanjay Sánchez to notified to call in Convalescent plasma for pt. Cont care
--- NOTE | 2019-09-20 19:10 | NUR ---
Opening Shift Note Assumed care of patient, awake and alert. No S/S of distress/SOB or pain. Patient on 4L NC. Patient safety measures in place bed in lowest position, side rails up x2, and call light within reach. Instructed on POC and to call for assist PRN, will continue to monitor for changes Q1hr and PRN.
[2019-09-20] MEDS: ATORVASTATIN 20 MG TAB PO SCH (21:50)
[2019-09-20 22:00] VITALS: BP 136/51
[2019-09-21] VITALS (9 sets, daily range): BP systolic 112–146; BP diastolic 41–82
[2019-09-21] MEDS: InsuLIN REG 1unit/0.01ml Soln (100units/ml) SC SCH ×6 (00:37→20:24)
[2019-09-21] MEDS: ACCU-CHEK COMFORT CURVE STRIP VI SCH ×7 (00:39→23:48)
[2019-09-21] MEDS ORDERED: SODIUM CHL 0.9% 1000 ML BAG XX ONE (07:00)
[2019-09-21] MEDS: BUDESONIDE (INHALATION) 180 MCG IH IN SCH ×2 (07:35→22:04)
[2019-09-21] MEDS: SEVELAMER 800 MG TAB PO SCH ×3 (08:23→18:00)
[2019-09-21] MEDS: cefTRIAXone 1GM/50ML D5W 50 ML IV SCH (09:28)
[2019-09-21] MEDS: GABAPENTIN 100 MG CAP PO SCH (09:31)
[2019-09-21] MEDS: ZINC SULFATE 220mg CAP or TAB PO SCH (09:31)
[2019-09-21] MEDS: CLOPIDOGREL BISULFATE 75 MG TAB PO SCH (09:31)
[2019-09-21] MEDS: CHOLECALCIFEROL (VITD3) 2,000 UNIT CAP PO SCH (09:31)
[2019-09-21] MEDS: ASCORBIC ACID 500 MG TAB PO SCH (09:31)
[2019-09-21] MEDS: DexAMETHasone SOD PHOS 10MG/1ML VIAL INJ IV SCH (09:31)
[2019-09-21] MEDS: ASPirin 81 mg TAB PO SCH (09:31)
[2019-09-21] MEDS: B-COMPLEX W/ C & FOLIC ACID(NEPHROVITE TAB) PO SCH (09:31)
[2019-09-21] MEDS: PANTOPRAZOLE 40 MG TAB PO SCH (09:31)
--- NOTE | 2019-09-21 10:58 | NUR ---
CONVALESCENT PLASMA TRANSFUSION STARTED AT THIS TIME AFTER COSIGNED AND CONFIRMED WITH ANTONIO CRUM. PATIENT VERBALIZED UNDERSTANDING OF RISKS AND BENEFITS AND INSTRUCTED TO REPORT ANY ADVERSE REACTIONS. CONT TO MONITOR IN ROOM AT THIS TIME
[2019-09-21 11:12] LABS: Basophils # (auto) 0 10 ^3/uL (0-0.2); Basophils % (auto) 0.6 % (0.0-2.0); Eosinophils # (auto) 0 10 ^3/uL (0-0.8); Hematocrit 28.2 % (36.0-46.0); Lymphocytes # (auto) 0.5 10 ^3/uL (0.4-5.4); Lymphocytes % (auto) 5.6 % (10.0-50.0); Mean Corpuscular Volume 93.8 fL (80.0-100.0); Monocytes # (auto) 0.5 10 ^3/uL (0-1.3); Monocytes % (auto) 5.4 % (0.0-12.0); Neutrophils # (auto) 7.6 10 ^3/uL (1.6-8.6); Neutrophils % (auto) 88.4 % (37.0-80.0); Platelet Count (auto) 138 10^3/uL (140-450); Red Cell Distribution Width 16.5 % (11.8-14.3); White Blood Cell 8.6 10^3/uL (4.4-10.8)
[2019-09-21 11:23] LABS: BUN/Creatinine Ratio 7.7; Calcium 7.9 mg/dL (8.5-10.1); Potassium 4.5 mmol/L (3.5-5.1)
--- NOTE | 2019-09-21 11:51 | NUR ---
at bedside MD Pace at bedside, aware of patient's status. Plasma infusing at this time. Will cont care pt currently on 3L n/c sat >92% no sob or distress noted.
--- NOTE | 2019-09-21 12:56 | NUR ---
Plasma transfusion ended. No signs of reaction noted. Patient tolerated well. Will cont to monitor.
--- NOTE | 2019-09-21 14:48 | NUR ---
Nutrition Followup Notes Wt: 75.7 kg Unable to speak to pt d/t pt is positive for COVID. Pt is with a CCHO 45g cardiac diet, with inadequate PO of 50% x 4 per RN doc. Est Energy needs: 7433-8966 kcals (25-30 kcal/kgBW), Est Protein needs: 93-116 gms/day (1.2-1.5 gm/kgBW) d/t pt with respiratory distress. Will continue to monitor and reassess prn. LABS: All nutrition related labs wnl except POC GLU 139 H GI: Pt had 1 BM yesterday per RN doc BS: 14 mod risk. Refer to wound assessment report for full details. PES: Altered nutrition related lab values r/t current medical condition aeb elev RFT hyperglycemia, hypocalcemia, mod hypoalb Comments Will continue to monitor PO status, skin status, pertinent labs and weight trends. Will f/u in 3-5 days. 1) consider CCHO 60 gm renal std cardiac diet. 2) refer to CDE on DC. 3) continue current plan of care
--- NOTE | 2019-09-21 17:17 | NUR ---
Dialysis ended at this time. Per dialysis clinical manager removed 2.2 L bp 119/50 hr56. Pt noted laying in bed comfortably no acute distress or sob noted. Call light within reach.
[2019-09-21] MEDS ORDERED: EPOETIN ALFA 4,000 UNIT/ML VL SC ONE (21:00)
--- NOTE | 2019-09-21 22:05 | NUR ---
RT NOTE PT WAS SEEN BY RT FOR MDI TX. PT TOLERATES PULMICORT FLEXHALER WELL. PT RINSED MOUTH POST TX. CONT ORDERED POX 93% ON 3L NASAL CANNULA Addendum: 09/21/19 at 2206 by Michelle Gautam RT Amended: Links added.
[2019-09-21] MEDS: ATORVASTATIN 20 MG TAB PO SCH (22:38)
[2019-09-22] MEDS: InsuLIN REG 1unit/0.01ml Soln (100units/ml) SC SCH ×6 (00:07→18:15)
[2019-09-22] MEDS: ACCU-CHEK COMFORT CURVE STRIP VI SCH ×5 (03:54→18:14)
[2019-09-22 05:00] VITALS: BP 131/58
[2019-09-22] MEDS: SEVELAMER 800 MG TAB PO SCH ×3 (08:00→18:14)
--- NOTE | 2019-09-22 08:04 | NUR ---
Upon assisting patient with bedpan to urinate pt noted increased SOB, assessed VS patient noted to be in the low 80's pulse ox. Pt propped up and increased to 6l n/c. Patient encouraged to take deep breaths and sats noted <89%. RT at bedside placed pt on 8l oxymizer and pt on continuos pulse ox at bedside sat >92%. Patient denies pain, denies sob at this time. Will cont to monitor closely. Patient noted eating at this time.
[2019-09-22] MEDS: BUDESONIDE (INHALATION) 180 MCG IH IN SCH ×2 (08:05→21:26)
--- NOTE | 2019-09-22 08:14 | NUR ---
RT NOTE: UPON ENTERING ROOM PT. WAS ON A 6L N/C. WITH POX OF MID 80'S. PT. PLACED ON OXYMIZER AND ULTIMATELY ENDED ON ON 8L WITH A POX OF 96%. ANTONIO GRAVES AT BEDSIDE AND AWARE.
[2019-09-22 09:26] VITALS: BP 124/47
[2019-09-22] MEDS: B-COMPLEX W/ C & FOLIC ACID(NEPHROVITE TAB) PO SCH (10:24)
[2019-09-22] MEDS: CHOLECALCIFEROL (VITD3) 2,000 UNIT CAP PO SCH (10:24)
[2019-09-22] MEDS: ASCORBIC ACID 500 MG TAB PO SCH (10:24)
[2019-09-22] MEDS: ZINC SULFATE 220mg CAP or TAB PO SCH (10:24)
[2019-09-22] MEDS: DexAMETHasone SOD PHOS 10MG/1ML VIAL INJ IV SCH (10:24)
[2019-09-22] MEDS: CLOPIDOGREL BISULFATE 75 MG TAB PO SCH (10:24)
[2019-09-22] MEDS: GABAPENTIN 100 MG CAP PO SCH (10:24)
[2019-09-22] MEDS: PANTOPRAZOLE 40 MG TAB PO SCH (10:24)
[2019-09-22] MEDS: ASPirin 81 mg TAB PO SCH (10:24)
[2019-09-22] MEDS: cefTRIAXone 1GM/50ML D5W 50 ML IV SCH (10:24)
[2019-09-22] MEDS: guaiFENesin-DM 100/10mg/5ml SYR PO PRN (10:38)
--- NOTE | 2019-09-22 11:30 | NUR ---
at bedside MD Pace at bedside, aware of patient's status including o2 status. Awaiting new orders cont care.
[2019-09-22] MEDS ORDERED: DEXTROSE (50%) 50ML SYRG IV PRN (11:45)
--- NOTE | 2019-09-22 11:52 | NUR ---
Patient refused 1200 meds at this time. Will try again later. Cont care patient currently 6L oxymizer sat 92%
[2019-09-22] MEDS: ALBUTEROL SULF HFA 90MCG INH 200DOSE IN SCH ×2 (14:25→21:26)
[2019-09-22 15:53] VITALS: BP 124/47
[2019-09-22 16:47] VITALS: BP 140/64
--- NOTE | 2019-09-22 18:50 | NUR ---
Patient titrated to 3L oxymizer sat 93%. No distress or sob noted at this time. Cont to monitor.
--- NOTE | 2019-09-22 19:05 | NUR ---
Patient care endorsed patient care endorsed to Jamin terry. Patient sitting up in bed eating dinner in no acute distress or sob. Oxymizer 3L at this time >92%. Patient doing IS throughout the day q1hr. CAll light within reach. Fall precs in place per protocol. No acute distress or sob noted at this time.
[2019-09-22 22:00] VITALS: BP 128/87
[2019-09-22] MEDS: ATORVASTATIN 20 MG TAB PO SCH (22:19)
[2019-09-23] MEDS: InsuLIN REG 1unit/0.01ml Soln (100units/ml) SC SCH ×4 (00:07→18:23)
[2019-09-23] MEDS: ACCU-CHEK COMFORT CURVE STRIP VI SCH ×4 (00:08→17:51)
[2019-09-23 05:00] VITALS: BP 143/57
[2019-09-23] MEDS: BUDESONIDE (INHALATION) 180 MCG IH IN SCH ×2 (07:32→22:13)
[2019-09-23] MEDS: ALBUTEROL SULF HFA 90MCG INH 200DOSE IN SCH ×3 (07:32→22:13)
[2019-09-23 08:00] VITALS: BP 151/56
[2019-09-23] MEDS ORDERED: SODIUM CHL 0.9% 1000 ML BAG XX ONE (08:30)
[2019-09-23] MEDS: ASPirin 81 mg TAB PO SCH (09:10)
[2019-09-23] MEDS: CLOPIDOGREL BISULFATE 75 MG TAB PO SCH (09:10)
[2019-09-23] MEDS: PANTOPRAZOLE 40 MG TAB PO SCH (09:10)
[2019-09-23] MEDS: ASCORBIC ACID 500 MG TAB PO SCH (09:10)
[2019-09-23] MEDS: SEVELAMER 800 MG TAB PO SCH ×3 (09:10→17:51)
[2019-09-23] MEDS: GABAPENTIN 100 MG CAP PO SCH (09:10)
[2019-09-23] MEDS: ZINC SULFATE 220mg CAP or TAB PO SCH (09:10)
[2019-09-23] MEDS: CHOLECALCIFEROL (VITD3) 2,000 UNIT CAP PO SCH (09:11)
[2019-09-23] MEDS: DexAMETHasone SOD PHOS 10MG/1ML VIAL INJ IV SCH (09:11)
[2019-09-23] MEDS: B-COMPLEX W/ C & FOLIC ACID(NEPHROVITE TAB) PO SCH (09:11)
[2019-09-23 12:00] VITALS: BP 144/45
[2019-09-23] MEDS ORDERED: cefTRIAXone 1GM/50ML D5W 50 ML IV ONE (14:30)
[2019-09-23 17:00] VITALS: BP 133/32
--- NOTE | 2019-09-23 19:03 | NUR ---
CLOSING SHIFT NOTE PATIENT HAS NO S/S OF DISTRESS/SOB OR PAIN AT THIS TIME. WILL ENDORSE CARE TO HARD TILE SETTER RN.
[2019-09-23] MEDS ORDERED: EPOETIN ALFA 4,000 UNIT/ML VL SC ONE (21:00)
[2019-09-23 22:00] VITALS: BP 155/87
[2019-09-23] MEDS: ATORVASTATIN 20 MG TAB PO SCH (22:30)
[2019-09-24] MEDS: ACCU-CHEK COMFORT CURVE STRIP VI SCH ×4 (00:05→18:09)
[2019-09-24] MEDS: InsuLIN REG 1unit/0.01ml Soln (100units/ml) SC SCH ×4 (00:11→18:11)
[2019-09-24 05:00] VITALS: BP 133/68
--- NOTE | 2019-09-24 07:15 | NUR ---
OPENING SHIFT NOTE ASSUMED CARE OF PATIENT FROM HOSE WRAPPER RN ANGELICA. PATIENT HAS NO S/S OF DISTRESS/SOB OR PAIN. INSTRUCTED PATIENT ON POC, PATIENT VERBALIZED UNDERSTANDING. BED IS IN LOWEST POSITION WITH SIDE RAILS RAISED X2, BED WHEELS LOCKED, AND CALL LIGHT IS WITHIN REACH. WILL CONTINUE TO MONITOR.
[2019-09-24] MEDS: ALBUTEROL SULF HFA 90MCG INH 200DOSE IN SCH ×3 (07:29→22:55)
[2019-09-24] MEDS: BUDESONIDE (INHALATION) 180 MCG IH IN SCH ×2 (07:29→22:55)
[2019-09-24 07:56] VITALS: BP 150/51
[2019-09-24 08:59] VITALS: BP 150/51
[2019-09-24] MEDS ORDERED: cefTRIAXone 1GM/50ML D5W 50 ML IV SCH (09:00)
[2019-09-24] MEDS: CLOPIDOGREL BISULFATE 75 MG TAB PO SCH (09:11)
[2019-09-24] MEDS: SEVELAMER 800 MG TAB PO SCH ×3 (09:11→18:12)
[2019-09-24] MEDS: CHOLECALCIFEROL (VITD3) 2,000 UNIT CAP PO SCH (09:11)
[2019-09-24] MEDS: ASCORBIC ACID 500 MG TAB PO SCH (09:11)
[2019-09-24] MEDS: DexAMETHasone 4 MG TAB PO SCH (09:11)
[2019-09-24] MEDS: ZINC SULFATE 220mg CAP or TAB PO SCH (09:11)
[2019-09-24] MEDS: PANTOPRAZOLE 40 MG TAB PO SCH (09:12)
[2019-09-24] MEDS: B-COMPLEX W/ C & FOLIC ACID(NEPHROVITE TAB) PO SCH (09:12)
[2019-09-24] MEDS: ASPirin 81 mg TAB PO SCH (09:12)
[2019-09-24] MEDS: GABAPENTIN 100 MG CAP PO SCH (09:12)
--- NOTE | 2019-09-24 11:57 | NUR ---
Nutrition Followup Notes Wt: 73.0 kg Unable to speak to pt d/t pt is positive for COVID. Pt is with a CCHO 45g cardiac diet, with adequate po intake of 75% avg po intake x 2 days per RN note. Est Energy needs BW 74 [id number] kcals (25-27 kcal/kgBW), Est Protein needs: 88-96 gms/day (1.2-1.3 gm/kgBW r/t HD). Will continue to monitor and reassess prn. LABS: BUN 55H, Creat 7.13H, Alb 2.4L, Ca 7.9L, GLUC 162H GI: Pt had 2 BMs yesterday per RN doc BS: 15 mod risk. Refer to wound assessment report for full details. PES: Altered nutrition related lab values r/t current medical condition aeb elev RFT hyperglycemia, hypocalcemia, mod hypoalb Comments Will continue to monitor PO status, skin status, pertinent labs and weight trends. Will f/u in 3-5 days. 1) consider CCHO 60 gm renal std cardiac diet. 2) refer to CDE on DC. 3) continue current plan of care
[2019-09-24 12:48] VITALS: BP 102/73
--- NOTE | 2019-09-24 12:58 | NUR ---
Pt refused PT treatment today. RN aware.
[2019-09-24 13:53] LABS: Basophils # (auto) 0.1 10 ^3/uL (0-0.2); Basophils % (auto) 0.7 % (0.0-2.0); Eosinophils # (auto) 0 10 ^3/uL (0-0.8); Eosinophils % (auto) 0.5 % (0.0-7.0); Hematocrit 29.4 % (36.0-46.0); Hemoglobin 9.4 g/dL (12.2-16.2); Lymphocytes # (auto) 0.5 10 ^3/uL (0.4-5.4); Lymphocytes % (auto) 5.3 % (10.0-50.0); Mean Corpuscular Hemoglobin 29.8 pg (28.0-32.0); Mean Corpuscular Volume 93.2 fL (80.0-100.0); Monocytes # (auto) 0.5 10 ^3/uL (0-1.3); Monocytes % (auto) 5.5 % (0.0-12.0); Neutrophils # (auto) 8.4 10 ^3/uL (1.6-8.6); Nucleated Red Blood Cells % 0.1 %; Platelet Count (auto) 206 10^3/uL (140-450); Red Blood Cells 3.15 10^6/uL (4.0-5.20); Red Cell Distribution Width 16.1 % (11.8-14.3); White Blood Cell 9.5 10^3/uL (4.4-10.8)
[2019-09-24 14:08] LABS: BUN/Creatinine Ratio 9.5; Calcium 8.5 mg/dL (8.5-10.1); Potassium 4.1 mmol/L (3.5-5.1)
--- NOTE | 2019-09-24 18:52 | NUR ---
CLOSING SHIFT NOTE PATIENT HAS NO S/S OF DISTRESS/SOB OR PAIN AT THIS TIME. WILL ENDORSE CARE TO WORKERS COMPENSATION LEGAL SECRETARY RN.
--- NOTE | 2019-09-24 19:30 | NUR ---
OPENING SHIFT NOTE Assumed care of patient who is A&O x4, Mongolian speaking. Currently on 2L NC, with continuous pulse oximeter monitoring. Moist cough noted. Denies pain at this time. PIV in right hand intact and patent. Flushed with 10ml NS. 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 Suture is present. Double lumen Stephan catheter in left upper chest present. dressing is CDI. Bed is in low locked position with side rails up x2. call light is within reach. Patient encouraged to call for assistance when needed. Will continue to monitor for changes PRN.
[2019-09-24 20:00] VITALS: BP 128/62
--- NOTE | 2019-09-24 20:11 | NUR ---
Patient found with nasal cannula off. Spo2 is 88% Nasal cannula replaced and o2 increased to 3L/min. Spo2 increased to 94% O2 decreased to 2L/min and spo2 is sustained at 93%. Patient placed on bedpan per request. Instructed to call for assistance when finished. Call light is within reach.
[2019-09-24 22:00] VITALS: BP 128/62
[2019-09-24] MEDS: DOXYCYCLINE 100 MG TAB/CAP PO SCH (22:30)
[2019-09-24] MEDS: ATORVASTATIN 20 MG TAB PO SCH (22:30)
[2019-09-25] VITALS (8 sets, daily range): BP systolic 138–162; BP diastolic 58–76
[2019-09-25] MEDS: ACCU-CHEK COMFORT CURVE STRIP VI SCH ×4 (00:17→17:29)
[2019-09-25] MEDS: InsuLIN REG 1unit/0.01ml Soln (100units/ml) SC SCH ×4 (00:20→17:51)
--- NOTE | 2019-09-25 07:10 | NUR ---
OPENING SHIFT NOTE ASSUMED CARE OF PATIENT FROM STAFF ATTORNEY RN DICK PATIENT HAS NO S/S OF DISTRESS/SOB OR PAIN. INSTRUCTED PATIENT ON POC, PATIENT VERBALIZED UNDERSTANDING. BED IS IN LOWEST POSITION WITH SIDE RAILS RAISED X2, BED WHEELS LOCKED, AND CALL LIGHT IS WITHIN REACH. WILL CONTINUE TO MONITOR.
[2019-09-25] MEDS: BUDESONIDE (INHALATION) 180 MCG IH IN SCH ×2 (07:13→21:46)
[2019-09-25] MEDS: ALBUTEROL SULF HFA 90MCG INH 200DOSE IN SCH ×3 (07:13→21:45)
[2019-09-25] MEDS: DexAMETHasone 4 MG TAB PO SCH (09:00)
[2019-09-25] MEDS: GABAPENTIN 100 MG CAP PO SCH (09:00)
[2019-09-25] MEDS: ASCORBIC ACID 500 MG TAB PO SCH (09:00)
[2019-09-25] MEDS: PANTOPRAZOLE 40 MG TAB PO SCH (09:00)
[2019-09-25] MEDS: B-COMPLEX W/ C & FOLIC ACID(NEPHROVITE TAB) PO SCH (09:00)
[2019-09-25] MEDS: ASPirin 81 mg TAB PO SCH (09:00)
[2019-09-25] MEDS: CHOLECALCIFEROL (VITD3) 2,000 UNIT CAP PO SCH (09:01)
[2019-09-25] MEDS: ZINC SULFATE 220mg CAP or TAB PO SCH (09:01)
[2019-09-25] MEDS: CLOPIDOGREL BISULFATE 75 MG TAB PO SCH (09:01)
[2019-09-25] MEDS: DOXYCYCLINE 100 MG TAB/CAP PO SCH ×2 (09:01→21:59)
[2019-09-25] MEDS: SEVELAMER 800 MG TAB PO SCH ×3 (09:09→17:29)
[2019-09-25] MEDS ORDERED: DOCUSATE SOD 100 MG CAP PO ONE (16:00)
[2019-09-25] MEDS ORDERED: LACTULOSE 20Gm/30ML SOLN PO ONE (16:00)
--- NOTE | 2019-09-25 17:26 | NUR ---
Pt declined PT treatment today. Will attempt again tomorrow.
[2019-09-25] MEDS: LACTULOSE 20Gm/30ML SOLN PO SCH (17:50)
--- NOTE | 2019-09-25 19:04 | NUR ---
CLOSING SHIFT NOTE PATIENT HAS NO S/S OF DISTRESS/SOB OR PAIN. ENDORSED CARE TO FLEXIBLE BABYSITTER ANTONIO PRIETO.
--- NOTE | 2019-09-25 19:25 | NUR ---
OPENING SHIFT NOTE Assumed care of patient who is A&O x4. Currently on 2L NC and continuous pulse oximeter monitoring with no s/s of distress. Denies pain at this time. PIV in right hand is intact and patent. Flushed with 10ml NS. Bed is in low locked position with side rails up x2. Call light is within reach and patient encouraged to call for assistance when needed. Will continue to monitor for changes PRN.
[2019-09-25] MEDS: ATORVASTATIN 20 MG TAB PO SCH (21:59)
[2019-09-25] MEDS ORDERED: DOCUSATE SOD 100 MG CAP PO PRN (22:00)
[2019-09-26] MEDS: LACTULOSE 20Gm/30ML SOLN PO SCH ×5 (00:01→23:38)
[2019-09-26] MEDS: ACCU-CHEK COMFORT CURVE STRIP VI SCH ×5 (00:01→23:39)
[2019-09-26] MEDS: InsuLIN REG 1unit/0.01ml Soln (100units/ml) SC SCH ×5 (00:10→23:39)
--- NOTE | 2019-09-26 02:44 | NUR ---
ROUNDS Patient has removed nasal cannula and is resting in bed with eyes closed. Spo2 is 77% Nasal cannula replaced and 02 increased to 4LPM. Spo2 increased to 94% O2 decreased back to 2LPM and spo2 is sustaining at 94%
[2019-09-26 05:00] VITALS: BP 158/64
[2019-09-26] MEDS ORDERED: SODIUM CHL 0.9% 1000 ML BAG XX ONE (07:00)
--- NOTE | 2019-09-26 07:25 | NUR ---
OPENING SHIFT NOTE ASSUMED CARE OF PATIENT FROM SAWYER HELPER RN DICK PATIENT HAS NO S/S OF DISTRESS/SOB OR PAIN. INSTRUCTED PATIENT ON POC, PATIENT VERBALIZED UNDERSTANDING. BED IS IN LOWEST POSITION WITH SIDE RAILS RAISED X2, BED WHEELS LOCKED, AND CALL LIGHT IS WITHIN REACH. WILL CONTINUE TO MONITOR.
[2019-09-26] MEDS: ALBUTEROL SULF HFA 90MCG INH 200DOSE IN SCH ×3 (07:45→22:56)
[2019-09-26] MEDS: BUDESONIDE (INHALATION) 180 MCG IH IN SCH ×2 (07:48→22:56)
[2019-09-26] MEDS: ASPirin 81 mg TAB PO SCH (08:53)
[2019-09-26] MEDS: B-COMPLEX W/ C & FOLIC ACID(NEPHROVITE TAB) PO SCH (08:53)
[2019-09-26] MEDS: SEVELAMER 800 MG TAB PO SCH ×3 (08:53→17:50)
[2019-09-26] MEDS: DexAMETHasone 4 MG TAB PO SCH (08:53)
[2019-09-26] MEDS: DOXYCYCLINE 100 MG TAB/CAP PO SCH ×2 (08:53→21:30)
[2019-09-26] MEDS: PANTOPRAZOLE 40 MG TAB PO SCH (08:54)
[2019-09-26] MEDS: ZINC SULFATE 220mg CAP or TAB PO SCH (08:54)
[2019-09-26] MEDS: CLOPIDOGREL BISULFATE 75 MG TAB PO SCH (08:54)
[2019-09-26] MEDS: CHOLECALCIFEROL (VITD3) 2,000 UNIT CAP PO SCH (08:54)
[2019-09-26] MEDS: ASCORBIC ACID 500 MG TAB PO SCH (08:54)
[2019-09-26] MEDS: GABAPENTIN 100 MG CAP PO SCH (08:54)
[2019-09-26 09:00] VITALS: BP 122/53
[2019-09-26 13:04] VITALS: BP 144/50
[2019-09-26 17:16] VITALS: BP 165/69
[2019-09-26 17:20] VITALS: BP 135/85
--- NOTE | 2019-09-26 19:10 | NUR ---
Opening Shift Note Assumed care of patient, awake and alert. No S/S of distress/SOB or pain. Instructed on POC and to call for assist PRN, will continue to monitor for changes Q1hr and PRN. FALL PRECAUTIONS IN PLACE.
--- NOTE | 2019-09-26 21:00 | NUR ---
GAVE REPORT TO TATO ALVAREZ AT TIME OF REPORT PT WAS awake and alert. No S/S of distress/SOB or pain.
[2019-09-26] MEDS: ATORVASTATIN 20 MG TAB PO SCH (21:31)
[2019-09-26 22:04] VITALS: BP 142/47
[2019-09-27 05:00] VITALS: BP 150/47
[2019-09-27] MEDS: LACTULOSE 20Gm/30ML SOLN PO SCH ×3 (05:48→17:46)
[2019-09-27] MEDS: InsuLIN REG 1unit/0.01ml Soln (100units/ml) SC SCH ×3 (05:48→17:51)
[2019-09-27] MEDS: ACCU-CHEK COMFORT CURVE STRIP VI SCH ×3 (05:49→17:51)
--- NOTE | 2019-09-27 06:47 | NUR ---
patient rounds patient resting in bed denies sob distress or pain. iv is patent and intact. fall precautions in place
--- NOTE | 2019-09-27 07:02 | NUR ---
report given to dayshift rn. patient denies sob distress or pain.
[2019-09-27] MEDS: BUDESONIDE (INHALATION) 180 MCG IH IN SCH ×2 (07:39→23:09)
[2019-09-27] MEDS: ALBUTEROL SULF HFA 90MCG INH 200DOSE IN SCH ×3 (07:39→23:09)
[2019-09-27] MEDS: SEVELAMER 800 MG TAB PO SCH ×3 (08:01→17:46)
[2019-09-27 09:24] VITALS: BP 122/53
[2019-09-27] MEDS: ASPirin 81 mg TAB PO SCH (09:34)
[2019-09-27] MEDS: DexAMETHasone 4 MG TAB PO SCH (09:35)
[2019-09-27] MEDS: CLOPIDOGREL BISULFATE 75 MG TAB PO SCH (09:35)
[2019-09-27] MEDS: GABAPENTIN 100 MG CAP PO SCH (09:35)
[2019-09-27] MEDS: B-COMPLEX W/ C & FOLIC ACID(NEPHROVITE TAB) PO SCH (09:35)
[2019-09-27] MEDS: ZINC SULFATE 220mg CAP or TAB PO SCH (09:35)
[2019-09-27] MEDS: PANTOPRAZOLE 40 MG TAB PO SCH (09:36)
[2019-09-27] MEDS: CHOLECALCIFEROL (VITD3) 2,000 UNIT CAP PO SCH (09:36)
[2019-09-27] MEDS: ASCORBIC ACID 500 MG TAB PO SCH (09:36)
[2019-09-27] MEDS: DOXYCYCLINE 100 MG TAB/CAP PO SCH ×2 (09:36→21:43)
[2019-09-27 13:17] VITALS: BP 147/61
--- NOTE | 2019-09-27 14:00 | NUR ---
SPOKE TO DR DURON HE SAID PATIENT IS OK FOR DISCHARGE AND CAN GO BACK TO [facility]. HE SPOKE TO DR OLMEDO ALREADY.
--- NOTE | 2019-09-27 14:04 | NUR ---
Nutrition Followup Notes Wt: 73.3 kg Unable to speak to pt d/t pt is positive for COVID. Pt is with a CCHO 45g cardiac diet, with fair po intake aeb pt with 53% avg po intake x 3 days per RN note. Pt with Nephrovite, Vitamin C500mg and Zinc ordered in medications. Continue monitoring po intake and possible need for oral supplements. Est Energy needs BW 74 [id number] kcals (25-27 kcal/kgBW), Est Protein needs: 88-96 gms/day (1.2-1.3 gm/kgBW r/t HD). Will continue to monitor and reassess prn. LABS: GLUC 120H, BUN 47H, Creat 4.44H, Alb 2.4L, GI: Pt had 2 BMs 09/26 per RN doc BS: 15 mod risk. Refer to wound assessment report for full details. PES: Altered nutrition related lab values r/t current medical condition aeb elev RFT hyperglycemia, hypocalcemia, mod hypoalb Comments Will continue to monitor PO status, skin status, pertinent labs and weight trends. Will f/u in 3-5 days. 1) consider CCHO 60 gm renal std cardiac diet. 2) refer to CDE on DC. 3) continue current plan of care
--- NOTE | 2019-09-27 14:44 | NUR ---
RT NOTE: PT REFUSED TX AT THIS TIME. NO SIGNS OF DISTRESS NOTED. SPO2 99 HR 88 RR 22. BREATH SOUNDS RHONCHI T/O. WILL CONTINUE TO MONITOR.
--- NOTE | 2019-09-27 16:08 | NUR ---
re-assessment Per consult dc planning. Patient will need home 02 on discharge. Patient will be returning home with family. Addendum: 09/27/19 at 1609 by Minerva Almonte Amended: Links added.
--- NOTE | 2019-09-27 16:51 | NUR ---
PATIENT NEEDS A SLING TO MOVE FROM WHEEL CHAIR TO DIALYSIS CHAIR. BECAUSE PATIENT IS UNABLE TO WALK PER PHYSICAL THERAPY.
[2019-09-27 17:00] VITALS: BP 140/72
--- NOTE | 2019-09-27 17:33 | NUR ---
re-assessment Per ss consult home health and home physical therapy. Patients xenia Romero called me to inform me that per patients dialysis she will need a sling for her wheelchair prior to being discharged. I have informed Grecia ALVAREZ. I also informed Heather of patients home health order and read her a list of medicare providers. Per Heather she has no preference. order sent to [facility]. Waiting for reply back now. Addendum: 09/27/19 at 1736 by Minerva LYNN Amended: Links added.
[2019-09-27] MEDS: ATORVASTATIN 20 MG TAB PO SCH (21:43)
[2019-09-27 22:00] VITALS: BP 141/67
[2019-09-28] VITALS (8 sets, daily range): BP systolic 125–160; BP diastolic 50–76
[2019-09-28] MEDS: LACTULOSE 20Gm/30ML SOLN PO SCH ×4 (06:00→18:00)
[2019-09-28] MEDS: InsuLIN REG 1unit/0.01ml Soln (100units/ml) SC SCH ×4 (06:00→18:00)
[2019-09-28] MEDS: ACCU-CHEK COMFORT CURVE STRIP VI SCH ×5 (06:21→23:58)
[2019-09-28] MEDS ORDERED: SODIUM CHL 0.9% 1000 ML BAG XX ONE (07:00)
[2019-09-28] MEDS: ALBUTEROL SULF HFA 90MCG INH 200DOSE IN SCH ×3 (07:16→23:17)
[2019-09-28] MEDS: BUDESONIDE (INHALATION) 180 MCG IH IN SCH ×2 (07:17→23:17)
[2019-09-28] MEDS: SEVELAMER 800 MG TAB PO SCH ×3 (08:19→18:32)
--- NOTE | 2019-09-28 09:54 | NUR ---
re-assessment Per Davis at [facility] they have received packet and are accepting patient for service. They are aware of covid status. Service will start on 09/29/2019. I will continue to monitor for discharge.
[2019-09-28] MEDS: B-COMPLEX W/ C & FOLIC ACID(NEPHROVITE TAB) PO SCH (10:51)
[2019-09-28] MEDS: DexAMETHasone 4 MG TAB PO SCH (10:51)
[2019-09-28] MEDS: ASPirin 81 mg TAB PO SCH (10:51)
[2019-09-28] MEDS: ZINC SULFATE 220mg CAP or TAB PO SCH (10:51)
[2019-09-28] MEDS: CLOPIDOGREL BISULFATE 75 MG TAB PO SCH (10:52)
[2019-09-28] MEDS: GABAPENTIN 100 MG CAP PO SCH (10:52)
[2019-09-28] MEDS: PANTOPRAZOLE 40 MG TAB PO SCH (10:53)
[2019-09-28] MEDS: DOXYCYCLINE 100 MG TAB/CAP PO SCH ×2 (10:53→22:15)
[2019-09-28] MEDS: ASCORBIC ACID 500 MG TAB PO SCH (10:55)
[2019-09-28] MEDS: CHOLECALCIFEROL (VITD3) 2,000 UNIT CAP PO SCH (10:55)
[2019-09-28 15:00] LABS: Basophils # (auto) 0 10 ^3/uL (0-0.2); Basophils % (auto) 0.4 % (0.0-2.0); Eosinophils # (auto) 0.1 10 ^3/uL (0-0.8); Eosinophils % (auto) 1.2 % (0.0-7.0); Hematocrit 27.4 % (36.0-46.0); Hemoglobin 8.9 g/dL (12.2-16.2); Mean Corpuscular Hemoglobin 30.1 pg (28.0-32.0); Mean Corpuscular Hgb Conc. 32.3 g/dL (32.0-36.0); Mean Corpuscular Volume 93.1 fL (80.0-100.0); Monocytes # (auto) 0.6 10 ^3/uL (0-1.3); Monocytes % (auto) 5.9 % (0.0-12.0); Neutrophils # (auto) 8.9 10 ^3/uL (1.6-8.6); Neutrophils % (auto) 83.5 % (37.0-80.0); Platelet Count (auto) 243 10^3/uL (140-450); Red Blood Cells 2.95 10^6/uL (4.0-5.20); Red Cell Distribution Width 16.7 % (11.8-14.3); White Blood Cell 10.6 10^3/uL (4.4-10.8)
--- NOTE | 2019-09-28 16:38 | NUR ---
D/C Planning Regarding social service consult for a wheelchair sling. Faxed clinical information to [facility]. Keren with [facility] informed me patient does not meet criteria for a wheelchair sling and family has been informed. Informed ANTONIO Costa.
--- NOTE | 2019-09-28 18:02 | NUR ---
[id number] SPOKE TO [employer] ([id number]). MADE HER AWARE PATIENT WAS DISCHARGE AND PATIENT DID NOT MEET CRITERIA FOR WHEELCHAIR SLING. PER [facility] WILL NOT DO HD WITHOUT WHEELCHAIR SLING. WILL CALL COMMISSARY SUPERINTENDENT.
--- NOTE | 2019-09-28 18:04 | NUR ---
CATTLE FEEDER PAGED MANAGER AGRICULTURE CATTLE FEEDER. AWAITING CALL BACK.
--- NOTE | 2019-09-28 18:12 | NUR ---
SOCIAL SERVICE SPOKE TO ALESHIA. PER ALESHIA SHE WILL WORK ON CURRENT SITUATION TOMORROW 09/29/2019.
--- NOTE | 2019-09-28 19:15 | NUR ---
Opening Shift Note Assumed care of patient. Patient is awake, alert, and oriented X 4. No S/S of respiratory distress or pain reported. Patient on 2 LPM NC. respirations are regular and non-labored. Bed in lowest position, brakes locked, side rails up x 2, call light within reach. Patient instructed to call for assistance as needed. Will continue to monitor for changes Q1hr and PRN.
[2019-09-28] MEDS ORDERED: EPOETIN ALFA 10,000 UNIT/1 ML VIAL SC ONE (21:00)
[2019-09-28] MEDS: ATORVASTATIN 20 MG TAB PO SCH (22:15)
[2019-09-29] MEDS: InsuLIN REG 1unit/0.01ml Soln (100units/ml) SC SCH ×5 (00:02→23:12)
[2019-09-29 04:53] VITALS: BP 154/74
[2019-09-29] MEDS: ACCU-CHEK COMFORT CURVE STRIP VI SCH ×4 (05:56→23:10)
[2019-09-29] MEDS: LACTULOSE 20Gm/30ML SOLN PO SCH ×5 (05:57→23:49)
--- NOTE | 2019-09-29 06:37 | NUR ---
Refused med Patient refused insulin injection. BG is 138 mg/dL. Patient educated about complications from high blood glucose level and importance of insulin injections. Patient continue to refuse med at this time.
[2019-09-29] MEDS: ALBUTEROL SULF HFA 90MCG INH 200DOSE IN SCH ×3 (07:13→22:15)
[2019-09-29] MEDS: BUDESONIDE (INHALATION) 180 MCG IH IN SCH ×2 (07:13→22:15)
--- NOTE | 2019-09-29 07:40 | NUR ---
OPENING NOTE ASSUMED CARE OF PT. ALERT AND ORIENTED. NO S/S OF SOB/DISTRESS NOTED. BED SET TO LOWEST POSITION/LOCKED. BEDSIDE RAILS UP X2. CALL LIGHT WITHIN REACH. INSTRUCTED PT TO CALL FOR ASSISTANCE. UPDATED ON POC. PT VERBALIZED UNDERSTANDING. WILL CONTINUE TO MONITOR Q1HR AND PRN.
[2019-09-29] MEDS: SEVELAMER 800 MG TAB PO SCH ×3 (08:32→17:36)
[2019-09-29 09:00] VITALS: BP 149/66
[2019-09-29] MEDS: PANTOPRAZOLE 40 MG TAB PO SCH (09:48)
[2019-09-29] MEDS: DOXYCYCLINE 100 MG TAB/CAP PO SCH ×2 (09:48→22:32)
[2019-09-29] MEDS: B-COMPLEX W/ C & FOLIC ACID(NEPHROVITE TAB) PO SCH (09:48)
[2019-09-29] MEDS: ZINC SULFATE 220mg CAP or TAB PO SCH (09:48)
[2019-09-29] MEDS: GABAPENTIN 100 MG CAP PO SCH (09:48)
[2019-09-29] MEDS: DexAMETHasone 4 MG TAB PO SCH (09:48)
[2019-09-29] MEDS: ASCORBIC ACID 500 MG TAB PO SCH (09:48)
[2019-09-29] MEDS: CHOLECALCIFEROL (VITD3) 2,000 UNIT CAP PO SCH (09:48)
[2019-09-29] MEDS: ASPirin 81 mg TAB PO SCH (09:48)
[2019-09-29] MEDS: CLOPIDOGREL BISULFATE 75 MG TAB PO SCH (09:48)
[2019-09-29 13:00] VITALS: BP 124/58
--- NOTE | 2019-09-29 16:35 | NUR ---
D/C Planning Regarding social service for home lift and sling. Faxed updated clinical information to [facility]. Per Dhara with [facility] order was received and they placed order for the lift and sling they and pending approval from health plan as well. Patient is not safe to discharge at this time until lift and sling for her dialysis is received. Informed ANTONIO Costa.
[2019-09-29 17:00] VITALS: BP 139/65
--- NOTE | 2019-09-29 19:15 | NUR ---
opening note pt resting in left lateral position with eyes closed. no s/s of pain or discomfort at this time. respirations even and nonlabored on 2Lnc. bed in low locked position, call light within reach.
[2019-09-29 22:00] VITALS: BP 131/56
[2019-09-29] MEDS: ATORVASTATIN 20 MG TAB PO SCH (22:32)
[2019-09-30 05:00] VITALS: BP 139/71
[2019-09-30] MEDS: LACTULOSE 20Gm/30ML SOLN PO SCH ×3 (05:37→17:59)
[2019-09-30] MEDS: ACCU-CHEK COMFORT CURVE STRIP VI SCH ×3 (05:38→17:57)
[2019-09-30] MEDS: InsuLIN REG 1unit/0.01ml Soln (100units/ml) SC SCH ×3 (05:41→17:59)
[2019-09-30] MEDS ORDERED: SODIUM CHL 0.9% 1000 ML BAG XX ONE (07:00)
[2019-09-30] MEDS: ALBUTEROL SULF HFA 90MCG INH 200DOSE IN SCH ×2 (07:03→14:23)
[2019-09-30] MEDS: BUDESONIDE (INHALATION) 180 MCG IH IN SCH (07:03)
--- NOTE | 2019-09-30 07:17 | NUR ---
closing note pt resting in right lateral with eyes closed. no s/s of pain or distress. endorsed care to day shift rn Karol.
[2019-09-30] MEDS: SEVELAMER 800 MG TAB PO SCH ×3 (08:00→18:00)
[2019-09-30 09:00] VITALS: BP 154/64
--- NOTE | 2019-09-30 10:00 | NUR ---
D/C Planning Placed called this morning to Keren with [facility] regarding updated for the lift and sling. Per Keren lift and sling will be deliver to patient home at 12 noon. Informed ANTONIO Costa.
[2019-09-30] MEDS: ZINC SULFATE 220mg CAP or TAB PO SCH (10:13)
[2019-09-30] MEDS: DexAMETHasone 4 MG TAB PO SCH (10:13)
[2019-09-30] MEDS: ASPirin 81 mg TAB PO SCH (10:13)
[2019-09-30] MEDS: CLOPIDOGREL BISULFATE 75 MG TAB PO SCH (10:14)
[2019-09-30] MEDS: GABAPENTIN 100 MG CAP PO SCH (10:14)
[2019-09-30] MEDS: B-COMPLEX W/ C & FOLIC ACID(NEPHROVITE TAB) PO SCH (10:14)
[2019-09-30] MEDS: DOXYCYCLINE 100 MG TAB/CAP PO SCH (10:14)
[2019-09-30] MEDS: PANTOPRAZOLE 40 MG TAB PO SCH (10:14)
[2019-09-30] MEDS: ASCORBIC ACID 500 MG TAB PO SCH (10:15)
[2019-09-30] MEDS: CHOLECALCIFEROL (VITD3) 2,000 UNIT CAP PO SCH (10:15)
[2019-09-30 11:12] LABS: Basophils # (auto) 0 10 ^3/uL (0-0.2); Basophils % (auto) 0.2 % (0.0-2.0); Eosinophils # (auto) 0.1 10 ^3/uL (0-0.8); Eosinophils % (auto) 0.5 % (0.0-7.0); Hematocrit 29.8 % (36.0-46.0); Hemoglobin 9.7 g/dL (12.2-16.2); Lymphocytes # (auto) 1.5 10 ^3/uL (0.4-5.4); Lymphocytes % (auto) 14.4 % (10.0-50.0); Mean Corpuscular Hemoglobin 30.9 pg (28.0-32.0); Mean Corpuscular Hgb Conc. 32.6 g/dL (32.0-36.0); Mean Corpuscular Volume 94.9 fL (80.0-100.0); Monocytes # (auto) 0.7 10 ^3/uL (0-1.3); Monocytes % (auto) 6.4 % (0.0-12.0); Neutrophils # (auto) 8.4 10 ^3/uL (1.6-8.6); Neutrophils % (auto) 78.5 % (37.0-80.0); Platelet Count (auto) 196 10^3/uL (140-450); Red Blood Cells 3.14 10^6/uL (4.0-5.20); Red Cell Distribution Width 16.9 % (11.8-14.3); White Blood Cell 10.7 10^3/uL (4.4-10.8)
--- NOTE | 2019-09-30 11:27 | NUR ---
MD DR. BENEDICT AT BEDSIDE DISCUSSED POC WITH PATIENT. PER MD PATIENT MAY BE DISCHARGED AFTER HD.
--- NOTE | 2019-09-30 11:30 | NUR ---
LIFT/SLING SPOKE TO [employer] ([id number]) VIA PHONE. PER [employer] LIFT/SLING WAS DELIVERED. [facility] STATED "LIFT AND SLING ARE INCOMPLETE, THE ADJUSTMENTS ARE MISSING, THIS IS NOT GOING TO WORK." WIRE COMMUNICATIONS ENGINEER JAYESH WAS INFORMED AND WILL LOOK INTO THE CURRENT SITUATION. JAYESH WILL KEEP THIS NURSE UPDATED.
--- NOTE | 2019-09-30 12:30 | NUR ---
DENTURES PATIENT STATED "I LOST MY DENTURES I CAN NOT FIND THEM. I LEFT THEM HERE ON THE TABLE." THIS NURSE AND SUPERVISING PRODUCER LOOKED FOR THE DENTURES AND WERE NOT FOUND. THIS NURSE PROCEEDED TO TELL THE PATIENT THEY COULD NOT BE FOUND.
--- NOTE | 2019-09-30 12:53 | NUR ---
Nutrition Followup Notes Wt: 76.0 kg Unable to speak to pt d/t pt is positive for COVID. Pt is with a CCHO 45g cardiac diet, with fair PO of avg 60% x 5 per RN doc Est Energy needs BW 74 [id number] kcals (25-27 kcal/kgBW), Est Protein needs: 88-96 gms/day (1.2-1.3 gm/kgBW r/t HD). Will continue to monitor and reassess prn. LABS: No new labs today POC GLU 153 H GI: Pt had 1 BM today per RN doc BS: 20 low risk. Refer to wound assessment report for full details. PES: Altered nutrition related lab values r/t current medical condition aeb elev RFT hyperglycemia, hypocalcemia, mod hypoalb Comments Will continue to monitor PO status, skin status, pertinent labs and weight trends. Will f/u in 3-5 days. 1) consider CCHO 60 gm renal std cardiac diet. 2) refer to CDE on DC. 3) continue current plan of care
[2019-09-30 13:00] VITALS: BP 134/74
--- NOTE | 2019-09-30 16:15 | NUR ---
HD HD NURSE AT BEDSIDE.
[2019-09-30 17:00] VITALS: BP 133/52
--- NOTE | 2019-09-30 18:04 | NUR ---
DENTURES LEFT MESSAGE TO GRADY SHAHID RE: DENTURES. SPOKE TO [employer] ([id number]) RE: DENTURES. INFORMED HER A [facility] STAFF MEMBER WILL WILL BE CALLING HER NEXT WEEK.
--- NOTE | 2019-09-30 18:58 | NUR ---
Discharge Discharge instructions given as ordered to Randee ([id number]) over the phone. Encourage to follow up with PMD as instructed. All questions and concerns addressed Randee. Randee verbalized understanding.
--- NOTE | 2019-09-30 19:05 | NUR ---
ENDORSED CARE TO NOC RN. DISCHARGE INSTRUCTIONS TO [employer] VIA PHONE. ENDORSED REMOVAL OF IV AND TELE MONITOR TO NOC RN.
--- NOTE | 2019-09-30 20:00 | NUR ---
Opening shift note Assumed care of pt. Alert and oriented x4. No S/S of distress or pain noted. Pt is on 4L NC with even and unlabored respirations. Discharge instructions given to pt. IV removed, intact, pressure gauze applied. Tele monitor removed. Pt taken down via wheelchair to front lobby for discharge home.
[2019-09-30] MEDS ORDERED: EPOETIN ALFA 4,000 UNIT/ML VL SC ONE (21:00)
== END 2019-09-30 19:59 | disposition home health service (06) | DRG 720 ==
LOC: EDUNIT# 10:11 → EDBD 10:11 → ER 10:11 → TELE 10:12 → TELE-CENTR 21:56 → TELE-EAST 09-16 10:42
PROVIDERS: ATTEND Internal Medicine
PROC: 5A1D70Z Performance of Urinary Filtration, Intermittent, Less than 6 Hours Per Day (ICD-10-PCS; 2019-09-16)
PROC: 02HV33Z Insertion of Infusion Device into Superior Vena Cava, Percutaneous Approach (ICD-10-PCS; 2019-09-18)
PROC: 5A1D70Z Performance of Urinary Filtration, Intermittent, Less than 6 Hours Per Day (ICD-10-PCS; 2019-09-19)
PROC: XW13325 Transfusion of Convalescent Plasma (Nonautologous) into Peripheral Vein, Percutaneous Approach, New Technology Group 5 (ICD-10-PCS; 2019-09-21)
PROC: 5A1D70Z Performance of Urinary Filtration, Intermittent, Less than 6 Hours Per Day (ICD-10-PCS; 2019-09-21)
PROC: 5A1D70Z Performance of Urinary Filtration, Intermittent, Less than 6 Hours Per Day (ICD-10-PCS; 2019-09-23)
PROC: 5A1D70Z Performance of Urinary Filtration, Intermittent, Less than 6 Hours Per Day (ICD-10-PCS; 2019-09-26)
PROC: 5A1D70Z Performance of Urinary Filtration, Intermittent, Less than 6 Hours Per Day (ICD-10-PCS; 2019-09-28)
PROC: 5A1D70Z Performance of Urinary Filtration, Intermittent, Less than 6 Hours Per Day (ICD-10-PCS; principal; 2019-09-30)
DX: A41.89 Other specified sepsis (principal); U07.1 COVID-19; I50.43 Acute on chronic combined systolic (congestive) and diastolic (congestive) heart failure; N18.6 End stage renal disease; Z99.2 Dependence on renal dialysis; E66.9 Obesity, unspecified; R79.89 Other specified abnormal findings of blood chemistry; D63.1 Anemia in chronic kidney disease; E11.22 Type 2 diabetes mellitus with diabetic chronic kidney disease; E11.51 Type 2 diabetes mellitus with diabetic peripheral angiopathy without gangrene; E78.5 Hyperlipidemia, unspecified; F41.9 Anxiety disorder, unspecified; I13.2 Hypertensive heart and chronic kidney disease with heart failure and with stage 5 chronic kidney disease, or end stage renal disease; J96.01 Acute respiratory failure with hypoxia; K59.00 Constipation, unspecified; N39.0 Urinary tract infection, site not specified; Z79.02 Long term (current) use of antithrombotics/antiplatelets; Z79.4 Long term (current) use of insulin; Z79.51 Long term (current) use of inhaled steroids; Z79.82 Long term (current) use of aspirin; Z79.899 Other long term (current) drug therapy; Z82.49 Family history of ischemic heart disease and other diseases of the circulatory system; Z86.718 Personal history of other venous thrombosis and embolism; K21.9 Gastro-esophageal reflux disease without esophagitis; Z68.29 Body mass index [BMI] 29.0-29.9, adult; I70.0 Atherosclerosis of aorta; T80.211A Bloodstream infection due to central venous catheter, initial encounter; Y84.1 Kidney dialysis as the cause of abnormal reaction of the patient, or of later complication, without mention of misadventure at the time of the procedure; Y92.89 Other specified places as the place of occurrence of the external cause; J12.89 Other viral pneumonia
CPT/HCPCS: 36415; 70450; 71045; 80048; 80053; 80061; 80202; 80320; 81001; 82728; 82962; 83036; 83605; 83735; 84484; 85025; 86141; 86850; 86900; 86901; 87040; 87086; 90935; 93005; 93306; 93886; 94640; 94760; 97110; 97530; C9113; G0378; J0696; J0885; J1100; J1642; J1815; J2543

== ENCOUNTER 2019-10-01 09:57 | Emergency (ER) | payer MEDICARE, MEDICAID ==
[~2019-10-01] VITALS: Ht 167.6 cm; Wt 99.8 kg
[2019-10-01 12:34] LABS: Basophils # (auto) 0 10 ^3/uL (0-0.2); Basophils % (auto) 0.4 % (0.0-2.0); Eosinophils # (auto) 0.1 10 ^3/uL (0-0.8); Eosinophils % (auto) 0.7 % (0.0-7.0); Hematocrit 29.1 % (36.0-46.0); Hemoglobin 9.3 g/dL (12.2-16.2); Lymphocytes # (auto) 1.6 10 ^3/uL (0.4-5.4); Lymphocytes % (auto) 14.1 % (10.0-50.0); Mean Corpuscular Hemoglobin 30.3 pg (28.0-32.0); Mean Corpuscular Hgb Conc. 31.9 g/dL (32.0-36.0); Mean Corpuscular Volume 94.7 fL (80.0-100.0); Monocytes # (auto) 0.7 10 ^3/uL (0-1.3); Monocytes % (auto) 6.3 % (0.0-12.0); Neutrophils # (auto) 8.7 10 ^3/uL (1.6-8.6); Neutrophils % (auto) 78.5 % (37.0-80.0); Nucleated Red Blood Cells % 0.1 %; Platelet Count (auto) 215 10^3/uL (140-450); Red Blood Cells 3.07 10^6/uL (4.0-5.20); Red Cell Distribution Width 17.6 % (11.8-14.3); White Blood Cell 11.1 10^3/uL (4.4-10.8)
[2019-10-01 12:53] LABS: Potassium 4.6 mmol/L (3.5-5.1)
[2019-10-01 12:57] LABS: Magnesium 2.4 mg/dL (1.6-2.6)
[2019-10-01 12:58] LABS: BUN/Creatinine Ratio 10.5; Bilirubin, Total 0.6 mg/dL (0.2-1.0); Total Protein 6.4 g/dL (6.4-8.2)
[2019-10-01] MEDS ORDERED: FUROSEMIDE 40 MG/4 ML VIAL IV ONE ×2 (13:45)
--- NOTE | 2019-10-01 14:20 | NUR ---
Respiratory note: ASSESSED PT, NO RESP DISTRESS NOTED. PT WAS ASLEEP HR 52, RR 16, SPO2 100% ON 3L N/C.
[2019-10-01 16:02] VITALS: BP 103/81
== END 2019-10-01 18:23 | disposition home or self-care (01) ==
LOC: EDBD 09:57 → ER 09:57
DX: E11.22 Type 2 diabetes mellitus with diabetic chronic kidney disease (principal); I13.2 Hypertensive heart and chronic kidney disease with heart failure and with stage 5 chronic kidney disease, or end stage renal disease; I50.9 Heart failure, unspecified; N18.6 End stage renal disease; I10 Essential (primary) hypertension; K21.9 Gastro-esophageal reflux disease without esophagitis; D64.9 Anemia, unspecified; Z20.828 Contact with and (suspected) exposure to other viral communicable diseases; Z99.2 Dependence on renal dialysis
CPT/HCPCS: 36415; 71045; 80053; 82728; 83605; 83615; 83735; 83880; 84484; 85025; 85379; 87040; 87426; 93005; 96374; 99285; J1940

== ENCOUNTER 2020-10-26 18:01 | Inpatient (IN) | payer MEDICARE, MEDICAID ==
[~2020-10-26] VITALS: Ht 154.9 cm; Wt 80.8 kg
[~2020-10-26 18:01] MED LIST changes: +AMLO-489 PO; -AMLO5TAB15 PO; -CLOP75TA41 PO; +CLOP75TA70 PO
[2020-10-26 20:08] LABS: Neutrophils % (auto) 80.5 % (37.0-80.0)
[2020-10-26 20:09] LABS: Basophils # (auto) 0 10 ^3/uL (0-0.2); Basophils % (auto) 0.3 % (0.0-2.0); Eosinophils # (auto) 0.1 10 ^3/uL (0-0.8); Eosinophils % (auto) 0.9 % (0.0-7.0); Hematocrit 34.9 % (36.0-46.0); Hemoglobin 11.1 g/dL (12.2-16.2); Lymphocytes # (auto) 0.7 10 ^3/uL (0.4-5.4); Lymphocytes % (auto) 10.4 % (10.0-50.0); Mean Corpuscular Hemoglobin 29.8 pg (28.0-32.0); Mean Corpuscular Hgb Conc. 31.8 g/dL (32.0-36.0); Mean Corpuscular Volume 93.6 fL (80.0-100.0); Monocytes # (auto) 0.5 10 ^3/uL (0-1.3); Monocytes % (auto) 7.9 % (0.0-12.0); Neutrophils # (auto) 5.6 10 ^3/uL (1.6-8.6); Red Blood Cells 3.73 10^6/uL (4.0-5.20); Red Cell Distribution Width 15.5 % (11.8-14.3)
[2020-10-26] MEDS: ONDANSETRON HCL 4 MG/2 ML VIAL IV ONE ×2 (20:30→23:26)
[2020-10-26 20:39] LABS: Potassium 3.7 mmol/L (3.5-5.1)
[2020-10-26 20:43] LABS: Albumin 2.8 g/dL (3.4-5.0); BUN/Creatinine Ratio 7.4; Calcium 9.2 mg/dL (8.5-10.1); Magnesium 2.3 mg/dL (1.6-2.6)
[2020-10-26 20:49] LABS: Bilirubin, Total 0.6 mg/dL (0.2-1.0); Total Protein 6.8 g/dL (6.4-8.2)
[2020-10-26] MEDS ORDERED: ACETAMINOPHEN 500 MG TAB PO ONE (23:15)
[2020-10-27] MEDS ORDERED: HYDROcodone-ACET 5/325MG TAB PO PRN (01:15)
[2020-10-27] MEDS ORDERED: ONDANSETRON HCL 4 MG/2 ML VIAL IV PRN (01:15)
[2020-10-27] MEDS ORDERED: NITROGLYCERIN 0.4 MG SL TAB SL PRN (01:15)
[2020-10-27] MEDS ORDERED: DEXTROSE (50%) 50ML SYRG IV PRN (01:15)
[2020-10-27] MEDS ORDERED: hydrALAZINE HCL 20 MG/ML VL IV PRN (01:15)
[2020-10-27] MEDS ORDERED: MORPHINE SULFATE INJECTION 2 MG/ML SYRG IV PRN (01:15)
[2020-10-27] MEDS ORDERED: DOCUSATE SOD 100 MG CAP PO PRN (01:15)
[2020-10-27 04:00] LABS: Basophils # (auto) 0 10 ^3/uL (0-0.2); Basophils % (auto) 0.8 % (0.0-2.0); Eosinophils # (auto) 0.1 10 ^3/uL (0-0.8); Eosinophils % (auto) 2.4 % (0.0-7.0); Hemoglobin 11.1 g/dL (12.2-16.2); Lymphocytes % (auto) 17.4 % (10.0-50.0); Mean Corpuscular Hgb Conc. 32.5 g/dL (32.0-36.0); Mean Corpuscular Volume 92.3 fL (80.0-100.0); Monocytes # (auto) 0.5 10 ^3/uL (0-1.3); Monocytes % (auto) 8.1 % (0.0-12.0); Neutrophils # (auto) 4.2 10 ^3/uL (1.6-8.6); Neutrophils % (auto) 71.3 % (37.0-80.0); Red Blood Cells 3.69 10^6/uL (4.0-5.20); White Blood Cell 5.9 10^3/uL (4.4-10.8)
[2020-10-27 04:19] LABS: Albumin 2.9 g/dL (3.4-5.0); Calcium 9.3 mg/dL (8.5-10.1); Potassium 3.6 mmol/L (3.5-5.1)
[2020-10-27 04:21] LABS: BUN/Creatinine Ratio 7.6
[2020-10-27 04:24] LABS: Bilirubin, Total 0.6 mg/dL (0.2-1.0); Total Protein 6.7 g/dL (6.4-8.2)
[2020-10-27] MEDS ORDERED: MIDODRINE HCL 10 MG TAB ONE (05:28)
[2020-10-27] MEDS: MIDODRINE HCL 10 MG TAB PO SCH ×3 (05:32→18:00)
[2020-10-27] MEDS: SODIUM CHLOR 0.9% PF (SALINE LOCK) 10ML VIAL/SYR IV SCH ×3 (05:32→21:41)
[2020-10-27] MEDS: ACCU-CHEK COMFORT CURVE STRIP VI SCH ×4 (06:31→21:52)
[2020-10-27] MEDS ORDERED: NOREPINEPHRINE 8 MG/250ML KIT 250 ML IV ONE (06:36)
[2020-10-27] MEDS: InsuLIN REG 1unit/0.01ml Soln (100units/ml) SC SCH ×3 (06:38→17:14)
[2020-10-27] MEDS ORDERED: NOREPINEPHRINE 8 MG/250ML KIT 250 ML IV SCH (06:45)
[2020-10-27] MEDS: NOREPINEPHRINE 8 MG/250ML KIT 250 ML IV SCH ×2 (07:27→19:32)
[2020-10-27] MEDS: SEVELAMER 800 MG TAB PO SCH ×3 (08:16→18:00)
[2020-10-27] MEDS: ACETAMINOPHEN 325 MG TAB PO PRN ×2 (08:16→10:24)
[2020-10-27] MEDS: ZINC SULFATE 220mg CAP or TAB PO SCH (10:00)
[2020-10-27] MEDS: B-COMPLEX W/ C & FOLIC ACID(NEPHROVITE TAB) PO SCH (10:00)
[2020-10-27] MEDS: ASCORBIC ACID 500 MG TAB PO SCH ×2 (10:00→21:41)
[2020-10-27] MEDS ORDERED: FAMOTIDINE (10MG/ML) 2ML VL IV SCH (10:00)
[2020-10-27] MEDS ORDERED: HEPARIN SODIUM (PORCINE) 5000 UNITS/ML 1ML VIAL SC SCH (10:00)
[2020-10-27] MEDS ORDERED: ETOMIDATE (2MG/ML) 20ML VIAL IV ONE (11:29)
[2020-10-27 11:30] VITALS: BP 118/72
[2020-10-27] MEDS ORDERED: SUCCINYLCHOLINE CHLORIDE 20 MG/ML 10ML VIAL IV ONE (11:31)
[2020-10-27] MEDS ORDERED: MIDAZOLAM DRIP 50 mg/50mL 50 ML IV ONE (11:44)
[2020-10-27] MEDS ORDERED: ENOXAPARIN SOD 30 MG/0.3 ML SYRINGE SC ONE (12:00)
[2020-10-27] MEDS ORDERED: cefTRIAXone 1GM/50ML D5W 50 ML IV ONE (12:45)
[2020-10-27] MEDS: MIDAZOLAM DRIP 50 mg/50mL 50 ML IV SCH ×2 (13:10→21:44)
[2020-10-27] MEDS ORDERED: metroNIDAZOLE 500MG/100ML 100 ML IV ONE (13:30)
[2020-10-27] MEDS ORDERED: IOHEXOL 350 MG/ML 100ML IJ ONE (14:01)
[2020-10-27 15:00] VITALS: BP 118/72
[2020-10-27] MEDS: FAMOTIDINE (10MG/ML) 2ML VL IV SCH (15:00)
[2020-10-27] MEDS ORDERED: ENOXAPARIN SOD 40 MG/0.4 ML SYRINGE SC ONE (15:00)
[2020-10-27 18:30] VITALS: BP 145/43
[2020-10-27 19:37] VITALS: BP 145/43
[2020-10-27] MEDS: metroNIDAZOLE 500MG/100ML 100 ML IV SCH (21:41)
[2020-10-27] MEDS ORDERED: InsuLIN REG 1unit/0.01ml Soln (100units/ml) SC SCH (22:00)
[2020-10-27 22:13] VITALS: BP 112/28
[2020-10-28] VITALS (52 sets, daily range): BP systolic 81–158; BP diastolic 16–111
[2020-10-28] MEDS: MIDODRINE HCL 10 MG TAB PO SCH ×3 (06:00→16:14)
[2020-10-28] MEDS ORDERED: SODIUM CHL 0.9% 1000 ML BAG XX ONE (07:00)
[2020-10-28] MEDS: InsuLIN REG 1unit/0.01ml Soln (100units/ml) SC SCH ×3 (07:00→18:08)
[2020-10-28] MEDS ORDERED: fentaNYL Drip 2500mCg/250mlNS 250 ML IV ONE (07:34)
[2020-10-28] MEDS: SODIUM CHLOR 0.9% PF (SALINE LOCK) 10ML VIAL/SYR IV SCH ×3 (07:46→22:00)
[2020-10-28] MEDS: SEVELAMER 800 MG TAB PO SCH ×3 (08:00→16:14)
[2020-10-28] MEDS: ACCU-CHEK COMFORT CURVE STRIP VI SCH ×3 (08:11→18:08)
[2020-10-28] MEDS: metroNIDAZOLE 500MG/100ML 100 ML IV SCH ×3 (08:12→22:00)
[2020-10-28 08:13] LABS: Basophils # (auto) 0.1 10 ^3/uL (0-0.2); Basophils % (auto) 1.2 % (0.0-2.0); Eosinophils # (auto) 0.1 10 ^3/uL (0-0.8); Eosinophils % (auto) 1.8 % (0.0-7.0); Hematocrit 32.6 % (36.0-46.0); Hemoglobin 10.8 g/dL (12.2-16.2); Lymphocytes # (auto) 1.3 10 ^3/uL (0.4-5.4); Lymphocytes % (auto) 15.3 % (10.0-50.0); Mean Corpuscular Hemoglobin 30.1 pg (28.0-32.0); Mean Corpuscular Hgb Conc. 33.2 g/dL (32.0-36.0); Mean Corpuscular Volume 90.7 fL (80.0-100.0); Monocytes # (auto) 0.8 10 ^3/uL (0-1.3); Monocytes % (auto) 9.4 % (0.0-12.0); Neutrophils % (auto) 72.3 % (37.0-80.0); Red Blood Cells 3.59 10^6/uL (4.0-5.20); White Blood Cell 8.2 10^3/uL (4.4-10.8)
[2020-10-28] MEDS: fentaNYL Drip 2500mCg/250mlNS 250 ML IV SCH ×2 (08:20→21:26)
[2020-10-28] MEDS: ASPirin 81 mg TAB PO SCH (08:21)
[2020-10-28] MEDS: ASCORBIC ACID 500 MG TAB PO SCH ×2 (08:22→22:00)
[2020-10-28] MEDS: ZINC SULFATE 220mg CAP or TAB PO SCH (08:22)
[2020-10-28] MEDS: B-COMPLEX W/ C & FOLIC ACID(NEPHROVITE TAB) PO SCH (08:22)
[2020-10-28 08:29] LABS: Potassium 3.3 mmol/L (3.5-5.1)
[2020-10-28 08:35] LABS: Albumin 2.7 g/dL (3.4-5.0); BUN/Creatinine Ratio 7.5; Bilirubin, Total 0.7 mg/dL (0.2-1.0); Calcium 9.2 mg/dL (8.5-10.1); Total Protein 6.3 g/dL (6.4-8.2)
[2020-10-28] MEDS: cefTRIAXone 1GM/50ML D5W 50 ML IV SCH (09:00)
[2020-10-28] MEDS ORDERED: ENOXAPARIN SOD 80 MG/0.8ML SYRINGE SC SCH (10:00)
[2020-10-28] MEDS ORDERED: ENOXAPARIN SOD 30 MG/0.3 ML SYRINGE SC SCH (10:00)
[2020-10-28] MEDS ORDERED: CLINIMIX PER PHARMACY 0 ML IV SCH (18:30)
[2020-10-28] MEDS ORDERED: DEXTROSE (50%) 50ML SYRG IV PRN (19:00)
[2020-10-28] MEDS ORDERED: POTASSIUM CHL 20MEQ/100ML 100 ML IV ONE (19:15)
[2020-10-28] MEDS ORDERED: InsuLIN REG 1unit/0.01ml Soln (100units/ml) SC SCH ×2 (19:59)
[2020-10-28] MEDS ORDERED: ACCU-CHEK COMFORT CURVE STRIP VI SCH (19:59)
[2020-10-28] MEDS ORDERED: AMINO ACID INFUSION IN D10W 1,000 ML IV ONE (20:00)
[2020-10-28] MEDS: ACETAMINOPHEN 325 MG TAB PO PRN (21:00)
[2020-10-28] MEDS: PHENYLEPHRINE IV 250 ML IV SCH (21:19)
[2020-10-29] VITALS (83 sets, daily range): BP systolic 81–174; BP diastolic 12–85
[2020-10-29] MEDS ORDERED: DEXTROSE (50%) 50ML SYRG IV SCH
[2020-10-29] MEDS: MIDAZOLAM DRIP 50 mg/50mL 50 ML IV SCH ×3 (01:53→21:18)
[2020-10-29] MEDS: NOREPINEPHRINE 8 MG/250ML KIT 250 ML IV SCH ×2 (01:54→17:37)
[2020-10-29] MEDS: PHENYLEPHRINE IV 250 ML IV SCH ×6 (01:55→13:04)
[2020-10-29 05:19] LABS: Basophils # (auto) 0.1 10 ^3/uL (0-0.2); Basophils % (auto) 0.8 % (0.0-2.0); Eosinophils # (auto) 0.1 10 ^3/uL (0-0.8); Eosinophils % (auto) 0.5 % (0.0-7.0); Hematocrit 35.1 % (36.0-46.0); Hemoglobin 11.4 g/dL (12.2-16.2); Lymphocytes # (auto) 1.3 10 ^3/uL (0.4-5.4); Lymphocytes % (auto) 10.1 % (10.0-50.0); Mean Corpuscular Hemoglobin 30.2 pg (28.0-32.0); Mean Corpuscular Hgb Conc. 32.6 g/dL (32.0-36.0); Mean Corpuscular Volume 92.6 fL (80.0-100.0); Monocytes # (auto) 1.9 10 ^3/uL (0-1.3); Monocytes % (auto) 14.2 % (0.0-12.0); Neutrophils # (auto) 9.9 10 ^3/uL (1.6-8.6); Neutrophils % (auto) 74.4 % (37.0-80.0); Nucleated Red Blood Cells % 0.2 %; Red Blood Cells 3.79 10^6/uL (4.0-5.20); Red Cell Distribution Width 15.4 % (11.8-14.3); White Blood Cell 13.3 10^3/uL (4.4-10.8)
[2020-10-29 05:59] LABS: Albumin 2.5 g/dL (3.4-5.0); BUN/Creatinine Ratio 5.7; Bilirubin, Total 0.6 mg/dL (0.2-1.0); Calcium 8.7 mg/dL (8.5-10.1); Phosphorus 5.6 mg/dL (2.5-4.90); Potassium 3.5 mmol/L (3.5-5.1); Pre Albumin 9.8 mg/dL (20.0-40.0); Total Protein 6.2 g/dL (6.4-8.2)
[2020-10-29] MEDS: InsuLIN REG 1unit/0.01ml Soln (100units/ml) SC SCH ×4 (06:00→18:40)
[2020-10-29] MEDS: MIDODRINE HCL 10 MG TAB PO SCH ×3 (06:00→18:00)
[2020-10-29] MEDS: ACCU-CHEK COMFORT CURVE STRIP VI SCH ×4 (06:00→18:31)
[2020-10-29] MEDS: SODIUM CHLOR 0.9% PF (SALINE LOCK) 10ML VIAL/SYR IV SCH ×3 (06:00→21:17)
[2020-10-29] MEDS: metroNIDAZOLE 500MG/100ML 100 ML IV SCH ×2 (06:00→13:02)
[2020-10-29] MEDS: SEVELAMER 800 MG TAB PO SCH ×4 (08:00→18:00)
[2020-10-29] MEDS: cefTRIAXone 1GM/50ML D5W 50 ML IV SCH (08:34)
[2020-10-29] MEDS: fentaNYL Drip 2500mCg/250mlNS 250 ML IV SCH (08:39)
[2020-10-29] MEDS ORDERED: CEFEPIME 1 GM in SODIUM CHL 0.9% 50 ML IV ONE (09:30)
[2020-10-29] MEDS: ASPirin 81 mg TAB PO SCH (10:00)
[2020-10-29] MEDS: ZINC SULFATE 220mg CAP or TAB PO SCH (10:00)
[2020-10-29] MEDS: ASCORBIC ACID 500 MG TAB PO SCH ×2 (10:00→21:17)
[2020-10-29] MEDS: B-COMPLEX W/ C & FOLIC ACID(NEPHROVITE TAB) PO SCH (10:00)
[2020-10-29] MEDS: ENOXAPARIN SOD 30 MG/0.3 ML SYRINGE SC SCH (10:00)
[2020-10-29] MEDS ORDERED: HEPARIN SODIUM (PORCINE) 5000 UNITS/ML 1ML VIAL ONE (15:49)
[2020-10-29] MEDS: FAMOTIDINE (10MG/ML) 2ML VL IV SCH (16:59)
[2020-10-29] MEDS: PHENYLEPHRINE INJ 40 MG in SODIUM CHL 0.9% 246 ML IV SCH (17:36)
[2020-10-29] MEDS ORDERED: AMINO ACID INFUSION IN D10W 1,000 ML IV NR (20:00)
[2020-10-29] MEDS ORDERED: NOREPINEPHRINE BITARTRATE 16 MG in SODIUM CHL 0.9% 234 ML IV SCH (21:00)
[2020-10-29] MEDS: ACETAMINOPHEN 325 MG TAB PO PRN (21:18)
[2020-10-30] VITALS (46 sets, daily range): BP systolic 86–186; BP diastolic 11–75
[2020-10-30] MEDS: InsuLIN REG 1unit/0.01ml Soln (100units/ml) SC SCH ×3 (00:26→12:00)
[2020-10-30] MEDS: ACCU-CHEK COMFORT CURVE STRIP VI SCH ×3 (00:29→14:14)
[2020-10-30] MEDS ORDERED: PHENYLEPHRINE IV 250 ML IV ONE (01:11)
[2020-10-30] MEDS ORDERED: PHENYLEPHRINE HCL 10 MG/ML VL ONE (01:13)
[2020-10-30] MEDS: PHENYLEPHRINE INJ 40 MG in SODIUM CHL 0.9% 246 ML IV SCH ×2 (02:00→08:28)
[2020-10-30] MEDS: fentaNYL Drip 2500mCg/250mlNS 250 ML IV SCH (02:33)
[2020-10-30] MEDS: MIDODRINE HCL 10 MG TAB PO SCH ×2 (06:00→12:00)
[2020-10-30] MEDS: SODIUM CHLOR 0.9% PF (SALINE LOCK) 10ML VIAL/SYR IV SCH (06:01)
[2020-10-30 07:14] LABS: Basophils # (auto) 0.1 10 ^3/uL (0-0.2); Basophils % (auto) 0.7 % (0.0-2.0); Eosinophils # (auto) 0.2 10 ^3/uL (0-0.8); Eosinophils % (auto) 1.9 % (0.0-7.0); Hematocrit 35.4 % (36.0-46.0); Hemoglobin 11.2 g/dL (12.2-16.2); Lymphocytes # (auto) 1.8 10 ^3/uL (0.4-5.4); Lymphocytes % (auto) 14.3 % (10.0-50.0); Mean Corpuscular Hemoglobin 30.3 pg (28.0-32.0); Mean Corpuscular Hgb Conc. 31.7 g/dL (32.0-36.0); Mean Corpuscular Volume 95.8 fL (80.0-100.0); Monocytes # (auto) 2.4 10 ^3/uL (0-1.3); Monocytes % (auto) 19.6 % (0.0-12.0); Neutrophils # (auto) 7.8 10 ^3/uL (1.6-8.6); Neutrophils % (auto) 63.5 % (37.0-80.0); Nucleated Red Blood Cells % 0.9 %; Red Blood Cells 3.69 10^6/uL (4.0-5.20); Red Cell Distribution Width 15.9 % (11.8-14.3); White Blood Cell 12.3 10^3/uL (4.4-10.8)
[2020-10-30 07:27] LABS: Potassium 4.2 mmol/L (3.5-5.1)
[2020-10-30 07:36] LABS: Albumin 2.1 g/dL (3.4-5.0); BUN/Creatinine Ratio 6.6; Bilirubin, Total 0.5 mg/dL (0.2-1.0); Calcium 8.9 mg/dL (8.5-10.1); Magnesium 2.3 mg/dL (1.6-2.6); Phosphorus 5.1 mg/dL (2.5-4.90); Total Protein 5.8 g/dL (6.4-8.2)
[2020-10-30] MEDS: SEVELAMER 800 MG TAB PO SCH ×2 (08:23→12:00)
[2020-10-30] MEDS ORDERED: CEFEPIME 1 GM in SODIUM CHL 0.9% 50 ML IV SCH (10:00)
[2020-10-30] MEDS: ASPirin 81 mg TAB PO SCH (10:02)
[2020-10-30] MEDS: ASCORBIC ACID 500 MG TAB PO SCH (10:02)
[2020-10-30] MEDS: ENOXAPARIN SOD 30 MG/0.3 ML SYRINGE SC SCH (10:02)
[2020-10-30] MEDS: B-COMPLEX W/ C & FOLIC ACID(NEPHROVITE TAB) PO SCH (10:02)
[2020-10-30] MEDS: ZINC SULFATE 220mg CAP or TAB PO SCH (10:03)
[2020-10-30] MEDS ORDERED: AMIODARONE 450mg/250ml AE 250 ML IV SCH ×2 (11:00→17:00)
[2020-10-30] MEDS ORDERED: AMIODARONE HCL 150 MG in D5W 5% 100 ML IV ONE (11:00)
[2020-10-30] MEDS ORDERED: DOPamine 1600MCG/ML D5W 250 ML IV ONE (12:54)
[2020-10-30] MEDS ORDERED: DOPamine 1600MCG/ML D5W 250 ML IV SCH ×2 (13:00)
[2020-10-30] MEDS ORDERED: SODIUM BICARBONATE 8.4% INJ 50ML SYRINGE ONE (13:23)
== END 2020-10-30 21:36 | DRG 720 ==
LOC: EDBD 18:01 → ER 18:04 → OVERFLOW 10-27 01:10 → UNDOADMIN 10-27 01:10 → DOU IN ICU 10-27 04:15 → OVERFLOW 10-28 04:14 → DOU IN ICU 10-28 04:14
PROVIDERS: ADMIT Nurse Practitioner Family; ATTEND Internal Medicine Pulmonary Disease
PROC: 06HM33Z Insertion of Infusion Device into Right Femoral Vein, Percutaneous Approach (ICD-10-PCS; 2020-10-27)
PROC: 06HN33Z Insertion of Infusion Device into Left Femoral Vein, Percutaneous Approach (ICD-10-PCS; 2020-10-27)
PROC: 4B02XSZ Measurement of Cardiac Pacemaker, External Approach (ICD-10-PCS; 2020-10-27)
PROC: 5A1945Z Respiratory Ventilation, 24-96 Consecutive Hours (ICD-10-PCS; 2020-10-27)
PROC: 0BH17EZ Insertion of Endotracheal Airway into Trachea, Via Natural or Artificial Opening (ICD-10-PCS; 2020-10-27)
PROC: 5A1D70Z Performance of Urinary Filtration, Intermittent, Less than 6 Hours Per Day (ICD-10-PCS; 2020-10-28)
PROC: 0J2VXYZ Change Other Device in Upper Extremity Subcutaneous Tissue and Fascia, External Approach (ICD-10-PCS; principal; 2020-10-29)
PROC: B5181ZA Fluoroscopy of Superior Vena Cava using Low Osmolar Contrast, Guidance (ICD-10-PCS; 2020-10-29)
PROC: 5A12012 Performance of Cardiac Output, Single, Manual (ICD-10-PCS; 2020-10-30)
DX: A41.9 Sepsis, unspecified organism (principal); J96.01 Acute respiratory failure with hypoxia; R65.21 Severe sepsis with septic shock; J69.0 Pneumonitis due to inhalation of food and vomit; K80.00 Calculus of gallbladder with acute cholecystitis without obstruction; I27.20 Pulmonary hypertension, unspecified; D63.1 Anemia in chronic kidney disease; I13.2 Hypertensive heart and chronic kidney disease with heart failure and with stage 5 chronic kidney disease, or end stage renal disease; I31.3 Pericardial effusion (noninflammatory); N18.6 End stage renal disease; S00.03XA Contusion of scalp, initial encounter; I65.23 Occlusion and stenosis of bilateral carotid arteries; I50.32 Chronic diastolic (congestive) heart failure; K59.00 Constipation, unspecified; E11.22 Type 2 diabetes mellitus with diabetic chronic kidney disease; E11.51 Type 2 diabetes mellitus with diabetic peripheral angiopathy without gangrene; E07.9 Disorder of thyroid, unspecified; Z20.822 Contact with and (suspected) exposure to COVID-19; E78.5 Hyperlipidemia, unspecified; I46.9 Cardiac arrest, cause unspecified; R55 Syncope and collapse; I07.1 Rheumatic tricuspid insufficiency; B96.20 Unspecified Escherichia coli [E. coli] as the cause of diseases classified elsewhere; W18.39XA Other fall on same level, initial encounter; K21.9 Gastro-esophageal reflux disease without esophagitis; E87.70 Fluid overload, unspecified; Z79.82 Long term (current) use of aspirin; Z79.84 Long term (current) use of oral hypoglycemic drugs; Z82.49 Family history of ischemic heart disease and other diseases of the circulatory system; Z86.73 Personal history of transient ischemic attack (TIA), and cerebral infarction without residual deficits; Z95.0 Presence of cardiac pacemaker; Z91.81 History of falling; Z91.15 Patient's noncompliance with renal dialysis; Y93.89 Activity, other specified; Y99.8 Other external cause status; Y92.098 Other place in other non-institutional residence as the place of occurrence of the external cause
CPT/HCPCS: 36415; 36581; 36600; 70450; 71045; 71275; 74176; 76705; 76937; 77001; 80053; 82040; 82805; 82962; 83036; 83605; 83690; 83735; 83880; 84100; 84443; 84478; 84484; 85025; 87070; 87077; 87081; 87186; 87205; 87426; 90935; 92950; 93005; 93306; 93886; 94002; 94003; 95819; 96365; 96366; 96367; 96368; 96372; 96375; 99152; G0378; J0330; J0696; J1642; J1815; J2250; J2405; J3490; J7060